=== PATIENT | female | born 1965 | race Caucasian/White ===

== ENCOUNTER 2020-03-02 17:54 | Outpatient (CLI) | payer SELFPAY ==
[2020-03-02 21:37] LABS: Free T4 Free Thyroxine 0.11 ng/dL (0.82-1.77)
== END 2020-03-02 17:55 | disposition home or self-care (01) ==
LOC: LAB 17:56
PROVIDERS: PCP Family Medicine; Visit Provider General Practice
DX: E03.9 Hypothyroidism, unspecified (principal)
CPT/HCPCS: 84439; 84443

== ENCOUNTER → 2020-06-06 14:31 | Outpatient (BNVA) | payer SELFPAY | PROVIDERS: PCP Family Medicine Adult Medicine; Visit Provider Family Medicine Adult Medicine | DX: I10 Essential (primary) hypertension (principal); E05.00 Thyrotoxicosis with diffuse goiter without thyrotoxic crisis or storm; T81.49XA Infection following a procedure, other surgical site, initial encounter; R79.89 Other specified abnormal findings of blood chemistry; Z83.3 Family history of diabetes mellitus | CPT/HCPCS: 80053; 83036; 84443; 85025 ==

== ENCOUNTER 2021-06-30 08:13 | Emergency (ER) | payer MEDICAID, SELFPAY ==
[2021-06-30 08:22] VITALS: BP 148/72; PULSE 57; RESP 16; TEMP 36.9; O2SAT 95; BMI 27.1
--- NOTE | 2021-06-30 09:08 | W.ED.EYEPROB ---
HPI - Eye Problem General: Chief complaint: Eye Problems Stated complaint: L eye pain Time Seen by Provider: 06/30/21 08:15 History of Present Illness: HPI Narrative: Patient comes in complaining of left eye pain that started 3 days ago. States she was seen in urgent care and given an antibiotic ointment without improvement. States she continues to have pain. She denies any trauma that she knows of. Denies any fever or vision loss. Associated symptoms: Denies fever(s), headache(s), nausea, neck pain or vomiting Review of Systems Const: Reports: change in weight; Denies: fever(s) or body aches Eyes: Reports: blurry vision and eye discomfort; Denies: change in vision ENMT: Denies: throat pain or odynophagia Card: Denies: chest pain or palpitations Resp: Reports: dyspnea; Denies: productive cough GI: Reports: hematochezia; Denies: abdominal pain, nausea or vomiting : Denies: flank pain or difficulty voiding Musc: Denies: neck pain or back pain Skin/Breast: Denies: rash or pruritus Neuro: Denies: headache(s) or numbness in extremities Psych: Reports: change in appetite; Denies: anxiety Endo: Denies: polyuria or excessive sweating PFSH ED PFSH: Medical History (Updated 06/30/21 @ 09:06 by Miller Bryan MD) Allergic rhinitis due to allergen Chronic low back pain Decreased glomerular filtration rate (GFR) Graves disease HTN (hypertension) Incisional abscess Plantar wart of right foot Restless leg syndrome Surgical History Hx of cholecystectomy Family History Other Arthritis CHF (congestive heart failure) Cancer Hyperlipidemia Hypertension Social History Smoking and tobacco status: current every day smoker cigarettes Packs smoked per day: 0.5 Second hand smoke exposure: Yes Alcohol intake: current Alcohol intake frequency: holidays/special occasions only Alcohol type: beer Household members: family and children Current occupational status: unemployed Physical Exam Const: COMMON NORMALS: no acute distress and patient oriented x3 EXAM LIMITATIONS: no altered mental status GENERAL APPEARANCE: cooperative, comfortable and well developed ORIENTATION/CONSCIOUSNESS: Yes awake, Yes oriented to person, Yes oriented to place and Yes oriented to time HENMT: COMMON NORMALS: normocephalic and atraumatic HEAD & SCALP: normocephalic and atraumatic Eye: COMMON NORMALS: Equal, round and reactive pupils present, EOMs intact bilaterally and conjunctivae normal (Conjunctival injection in the left eye) CONJUNCTIVA: Yes conjunctivae normal (Conjunctival injection in the left eye) CORNEA: Yes corneas normal (Fluorescein uptake in a circular pattern at the 6 o'clock position left eye) and fluorescein used PUPIL: Yes Equal, round and reactive pupils present SLIT LAMP EXAM: Yes slit lamp exam performed with fluorescein OTHER: No foreign body visualized, fluorescein uptake in a circular pattern at the 6 o'clock position of the left eye concerning for corneal abrasion versus corneal ulcer Neck/C-Spine: COMMON NORMALS: full ROM and supple Resp: COMMON NORMALS: normal respiratory effort, No retractions and clear to auscultation bilaterally AUSCULTATION: clear to auscultation bilaterally Cardio: COMMON NORMALS: regular rate and regular rhythm RATE: regular rate RHYTHM: regular rhythm GI: COMMON NORMALS: Normal to inspection, nondistended, normoactive bowel sounds present, Soft to palpation and non-tender PALPATION: Yes Soft to palpation Back/Pelvis: COMMON NORMALS: thoraco-lumbar ROM normal Extremity: COMMON NORMALS: normal to inspection and full ROM Neuro: COMMON NORMALS: patient oriented x3 SENSORIUM/ORIENTATION: Yes oriented to person, Yes oriented to place and Yes oriented to time Course ED course: Patient comes in complaining of left eye pain for the past 3 days. States she was seen at urgent care diagnosed with a corneal abrasion and started on antibiotic ointment. States the pain continues and she came in for reevaluation. On physical exam she does have fluorescein uptake in her left eye in a circular pattern at the 6 o'clock position. This is concerning for corneal abrasion versus a corneal ulcer. She denies any trauma. Slit-lamp exam does not reveal any foreign body. Will change her to erythromycin ointment, refer to ophthalmology, and discharged with precautions to return for worsening or changing symptoms. Vital Signs: Vital signs: Vital Signs Temperature 98.4 F 06/30/21 08:22 Pulse Rate 57 L 06/30/21 08:22 Respiratory Rate 16 06/30/21 08:22 Blood Pressure 148/72 06/30/21 08:22 Pulse Oximetry 95 06/30/21 08:22 Discharge Plan Discharge Patient Disposition: Home Clinical Impression: Corneal abrasion, left Qualifiers: Encounter type: initial encounter Qualified Code(s): S05.02XA - Injury of conjunctiva and corneal abrasion without foreign body, left eye, initial encounter Condition: Stable Prescriptions: No Action acetaminophen [Tylenol Extra Strength] 500 mg tablet 500 mg PO .10X PRNRF: 0 atorvastatin 80 mg tablet 80 mg PO DAILY RF: 0 bacitracin-polymyxin B 500-10,000 unit/gram ointment 1 applic ophthalmic (eye) QID 7 Days Qty: 3.5 RF: 0 levothyroxine 88 mcg tablet 88 mcg PO DAILY Qty: 30 RF: 5 amitriptyline 25 mg tablet 25 mg PO .HS Qty: 30 RF: 5 metoprolol tartrate 50 mg tablet 50 mg PO BID Qty: 60 RF: 5 Discharge Orders: Discharge ED (Routine); Ordered 06/30/21 Ordered By: Miller Bryan Referrals: Mayito Shankar MD [Primary Care Provider] - Jean Marie Gross MD [Physician] - Coding Level of Care Code ED Annealing Oven Operator for Chg Fwd Exam Comprehensive
[2021-06-30] MEDS: tetracaine 0.5% Op Soln 4 mL Btl 1 DROP EYE-LEFT (09:37)
[2021-06-30] MEDS: erythromycin Op Oint 1 gm 1 APPLIC EYE-LEFT (09:37)
--- NOTE | 2021-07-02 13:42 | DCPLANNER ---
Addendum entered by Yuliet Abad 07/20/21 08:31: hardware manager called the office of Dr. Gross to confirm that an appointment had been scheduled for patient. hardware manager was told that patient had already followed up with a specialist, where she lives in [place]. Original Note: hardware manager had message to schedule a follow up appointment for patient with Dr. Gross, eye doctor. hardware manager faxed patients information to the office of Dr. Gross. Patients information will be printed and reviewed. Clinic will call patient with appointment information.
== END 2021-06-30 09:41 | disposition home or self-care (01) ==
PROVIDERS: Emergency Provider Emergency Medicine; PCP Family Medicine Adult Medicine
DX: S05.02XA Injury of conjunctiva and corneal abrasion without foreign body, left eye, initial encounter (principal); I10 Essential (primary) hypertension; F17.210 Nicotine dependence, cigarettes, uncomplicated; X58.XXXA Exposure to other specified factors, initial encounter
CPT/HCPCS: 99283

== ENCOUNTER 2021-10-05 13:19 | Inpatient (IN) | payer MEDICAID, SELFPAY ==
[2021-10-05] VITALS (15 sets, daily range): BP systolic 94–137; BP diastolic 51–84; PULSE 73–106; RESP 13–22; TEMP 36.2; O2SAT 80–100; BMI 25.8
--- NOTE | 2021-10-05 13:21 | ED_ITS ---
HPI - Neuro Symptoms/Deficit General: Chief Complaint: Shortness of Breath/Dyspnea Stated Complaint: POSSIBLE STROKE Time Seen by Provider: 10/05/21 13:21 Limitations: altered mental status History of Present Illness: Ms. Harris is a 55-year-old lady with history of hypertension, hyperlipidemia, Graves' disease and known biliary pathology who presents to the emergency department due to altered mental status. Last definitive known well was last night at approximately 8 PM. Upon initial arrival the patient is somnolent and only provides limited history. She was noted by family to have questionable slurred speech with concern for stroke. Upon significant clinical improvement additional history provided by patient. She actually does not endorse specific respiratory symptoms though did have mild back pain over the past few days. She has a known history of pancreatic duct stones and previously has been evaluated at in [place]. She was scheduled to have the last of the stones removed or a stent placed on Friday. She denies new or worsening symptoms associated with her pancreatic stones and she had known stones for a number of years when she did not have insurance that were not intervened upon and have not at significant problems associated with this. Last Observed Normal: 20:00 History of same: No Review of Systems General: Reports: ROS unobtainable due to mental status PFS ED PFSH: Medical History Allergic rhinitis due to allergen Chronic low back pain Decreased glomerular filtration rate (GFR) Graves disease HTN (hypertension) Incisional abscess Plantar wart of right foot Restless leg syndrome Surgical History Hx of cholecystectomy Family History Other Arthritis CHF (congestive heart failure) Cancer Hyperlipidemia Hypertension Social History Smoking and tobacco status: current every day smoker cigarettes Packs smoked per day: 0.5 Second hand smoke exposure: Yes Alcohol intake: current Alcohol intake frequency: holidays/special occasions only Alcohol type: beer Household members: family and children Current occupational status: unemployed Physical Exam Const: COMMON NORMALS: patient oriented x3 GENERAL APPEARANCE: lethargic and ill appearing ORIENTATION/CONSCIOUSNESS: Yes oriented to person, Yes oriented to place, Yes oriented to time and Yes lethargic HENMT: COMMON NORMALS: normocephalic and atraumatic HEAD & SCALP: normocephalic and atraumatic THROAT: posterior oropharynx normal Eye: COMMON NORMALS: conjunctivae normal CONJUNCTIVA: Yes conjunctivae normal SCLERA: sclerae normal Neck/C-Spine: COMMON NORMALS: supple GENERAL: Yes trachea midline Resp: EFFORT & INSPECTION: Yes tachypneic and Yes respiratory distress AUSCULTATION: rhonchi and diminished lung sounds Cardio: COMMON NORMALS: regular rhythm RATE: tachycardic RHYTHM: regular rhythm OTHER: Diminished peripheral pulses GI: COMMON NORMALS: Soft to palpation PALPATION: Yes Soft to palpation and No Tenderness to palpation present (GI) PERCUSSION: normal to percussion Extremity: GENERAL: Yes normal exam except as noted and No edema Neuro: COMMON NORMALS: patient oriented x3, CN's II-XII intact bilaterally, moves all extremities, no focal motor deficits and no sensory deficits noted SENSORIUM/ORIENTATION: Yes oriented to person, Yes oriented to place, Yes oriented to time, Yes lethargic and Yes somnolent SPEECH: abnormal speech (minimally dysarthric/slurred) PUPIL EXAM: Normal pupillary reactivity/response: bilateral Course ED course: - Patient was seen and evaluated by me at bedside - Patient placed on cardiac monitors, IV access obtained - Initial evaluation notable for ill appearance, patient is tachycardic and hypotensive and somnolent. - ABG notable for hypoxemia and hypercapnia with acidemia. Patient hypoxemia correlates with SPO2 despite supplemental oxygen. BiPAP ordered. - IV fluids and empiric antibiotics ordered. - Labs and xrays personally interpreted by me. EKG at 134 reportedly and 1538 personally interpreted by me. Sinus rhythm. No STEMI. - Labs notable for leukocytosis, normal hemoglobin with macrocytic cells. Normal platelet count. Metabolic panel without acute electrolyte derangement. Creatinine is elevated above only prior baseline in current system. Lactic acid elevated at 2.6. BNP minimally elevated. TSH elevated with mildly low free T4 though clinical presentation and subsequent improvement is not with myxedema coma. Urinalysis negative for urinary tract infection. Urine drug screen positive for opioids of unclear etiology, patient denies opioids. - Imaging notable for right lower lobe pneumonia without evidence of pulmonary embolism. There are changes compared to 2018 CT regarding the patient's known biliary pathology. - Repeat lactic improved after greater than 30 cc/kg ideal body weight and fluid bolus. - Upon serial reexamination after treatment the patient was markedly improved. Initial NIHSS perhaps 2 for dysarthria however currently 0 appears significantly better. Blood pressure is improved and patient currently on supplemental oxygen with nasal cannula. - Based on patient history, evaluation, and testing as interpreted the most likely cause of the patient's condition is pneumonia with severe sepsis resulting in acute hypoxemic and hypercapnic respiratory failure - The results of ED evaluation were discussed with the patient including plan for admission due to requirement for level of care not available if discharged to prevent significant worsening/deterioration. - Admitting service was contacted and Dr Borrego with the hospitalist service agreed to admit the patient - Patient was admitted without further deterioration or significant events. Note: Click bubbles or prepopulated menjivar in note writing are used for assistance with data collection and billing and are inherently more limited than narrative and other text portions of this note. Please use narrative for additional clinical history and defer to narrative/free test for any case of contradictory information. If information appears in only free text or click bubble it should be considered present or absent as reported. Please contact note typewriter assembly and parts inspector for clarifications of clinical information or contradictory information. MDM is a brief summary, contradictory or erroneous seeming information should be clarified and full note should be reviewed. Vital Signs: Vital signs: Vital Signs Temperature 98.3 F 10/07/21 04:42 Pulse Rate 79 10/07/21 10:39 Respiratory Rate 16 10/07/21 10:39 Blood Pressure 145/99 10/07/21 08:52 Pulse Oximetry 93 10/07/21 10:39 MDM - Neuro Symptoms/Deficit Medical Decision Making 55-year-old lady with complex past medical history presenting with altered mental status. Patient found to have acute hypercapnic and hypoxic respiratory failure likely contributing to mental status. She qualifies for severe sepsis secondary to pneumonia. Patient mental state improved with BiPAP and admitted for definitive management and further treatment. Medical Records I reviewed the patient's medical records. Lab Data I reviewed the patient's lab results. : 10/07/21 04:45 10/07/21 04:45 Radiology Impressions Chest X-Ray 10/05/21 13:22 IMPRESSION: 1. Patchy infiltrate in the mid and lower right lung suggesting pneumonia. Head CT 10/05/21 13:22 IMPRESSION: No acute intracranial hemorrhage. Mild small vessel ischemic disease. Chest/Abdomen/Pelvis CT 10/05/21 14:37 IMPRESSION: 1. Pulmonary arteries appear unremarkable. No evidence of pulmonary embolism. 2. No evidence of thoracic aortic aneurysm or dissection. 3. Mild bronchial wall thickening bilaterally. Diffuse tree-in-bud infiltrates noted throughout the right lung. This may represent infectious bronchiolitis versus mycobacterial infection. This is new when compared to the previous study. 4. Focal airspace disease in the posterior right lower lobe, which may represent focal pneumonia. IMPRESSION: 1. 16 x 8 mm bilobed calcification seen in the head of the pancreas near the common duct. This calcification has increased in size when compared to 01/17/2018. This most likely represents a parenchymal calcification of the pancreas versus a pancreatic duct calculus, rather than a distal common duct calculus. 2. There is a new 5 mm calcification in the pancreatic neck, likely located within the pancreatic duct. This is associated with dilatation of the pancreatic duct, and is new when compared to 01/17/2018. 3. The head and uncinate process of the pancreas are mildly enlarged, representing a change when compared to the previous study. This may represent focal pancreatitis. A pancreatic mass is not definitely excluded. Consider follow-up MRI of the pancreas for further assessment. 4. Diverticulosis of the colon. No evidence of acute diverticulitis. Laboratory Results WBC 14.0 10^3/uL (4.0-10.0) H 10/05/21 13:53 RBC 3.74 10^6/uL (4.1-5.3) L 10/05/21 13:53 Hgb 13.1 g/dL (11.5-15.3) 10/05/21 13:53 Hct 41.1 % (37.0-47.0) 10/05/21 13:53 MCV 109.9 fl (81-99) H 10/05/21 13:53 MCH 35.0 pg (28.0-34.0) H 10/05/21 13:53 MCHC 31.9 g/dL (30.0-36.0) 10/05/21 13:53 RDW 15.4 % (12.1-15.1) H 10/05/21 13:53 Plt Count 283 10^3/cmm (130-400) 10/05/21 13:53 MPV 9.6 fL (7.4-10.4) 10/05/21 13:53 Neut % (Auto) 88.7 % 10/05/21 13:53 Lymph % (Auto) 5.5 % 10/05/21 13:53 Bee % (Auto) 4.8 % 10/05/21 13:53 Eos % (Auto) 0.0 % 10/05/21 13:53 Baso % (Auto) 0.4 % 10/05/21 13:53 Neut # (Auto) 12.39 10^3/uL (1.8-7.7) H 10/05/21 13:53 Lymph # (Auto) 0.8 10^3/uL (0.8-4.8) 10/05/21 13:53 Bee # (Auto) 0.7 10^3/uL (0.2-0.9) 10/05/21 13:53 Eos # (Auto) 0.0 10^3/uL (0.0-0.8) 10/05/21 13:53 Baso # (Auto) 0.1 10^3/uL (0.0-0.1) 10/05/21 13:53 Nucleated RBC % (auto) 0 % 10/05/21 13:53 Nucleated RBCs # 0.0 /100WBC 10/05/21 13:53 PT 12.30 SECONDS (12.1-14.9) 10/05/21 14:25 INR 0.89 (0.8-1.2) 10/05/21 14:25 APTT 28.6 SECONDS (23.9-36.7) 10/05/21 14:25 Specimen Type Arterial 10/05/21 13:38 Sample Site Brachial, right 10/05/21 13:38 ABG pH 7.23 (7.35-7.45) L 10/05/21 13:38 ABG pCO2 50.4 mmHg (35-45) H 10/05/21 13:38 ABG pO2 69.2 mmHg (80.0-100.0) L 10/05/21 13:38 ABG HCO3 21.2 mmol/L (22-26) L 10/05/21 13:38 ABG O2 Saturation 93.4 10/05/21 13:38 ABG Base Excess -6.6 mmol/L (-2.0-2.0) L 10/05/21 13:38 Manuel Test N/a 10/05/21 13:38 A-a O2 Gradient 2.5 mmHg (5-10) L 10/05/21 13:38 Hematocrit 40.6 % (37-47) 10/05/21 13:38 Hgb O2 Saturation 92.3 % (95-100) L 10/05/21 13:38 Carboxyhemoglobin 1.0 %THgb (0.4-20.1) 10/05/21 13:38 Methemoglobin 0.1 % (0.4-1.5) L 10/05/21 13:38 Total Hemoglobin 13.2 g/dL (12-16) 10/05/21 13:38 Sodium 143.0 mmol/L (131-143) 10/05/21 13:38 Potassium 3.4 mmol/L (3.5-5.0) L 10/05/21 13:38 Glucose 108.0 mg/dL (70-115) 10/05/21 13:38 Ionized Calcium 1.2 mmol/L (1.1-1.4) 10/05/21 13:38 O2 Delivery Device Nrb 10/05/21 13:38 O2 Liters/Min 15.0 % 10/05/21 13:38 Portrait Painter ID Amh 10/05/21 13:38 Sodium 143 mmol/L (136-145) 10/05/21 14:50 Potassium 3.5 mmol/L (3.5-5.1) 10/05/21 14:50 Chloride 107 mmol/L (98-107) 10/05/21 14:50 Carbon Dioxide 22 mmol/L (22-29) 10/05/21 14:50 Anion Gap 17.5 (5-19) 10/05/21 14:50 BUN 10 mg/dL (6-20) 10/05/21 14:50 Creatinine 1.4 mg/dL (0.5-0.9) H 10/05/21 14:50 GFR Calculation 39.3 mL/min (90-130) L 10/05/21 14:50 Glucose 117 mg/dL (65-115) H 10/05/21 14:50 POC Glucose 94 mg/dL (70-110) 10/05/21 14:26 Calculated Osmolality 296 mOsm/kg (285-295) H 10/05/21 14:50 Lactic Acid 2.6 mmol/L (0.5-2.2) H 10/05/21 14:50 Lactic Acid (Sepsis) 2.2 mmol/L (0.5-2.2) 10/05/21 16:44 Calcium 8.5 mg/dL (8.5-10.5) 10/05/21 14:50 Total Bilirubin 0.3 mg/dL (0.15-1.2) 10/05/21 14:50 AST 23 U/L (0-32) 10/05/21 14:50 ALT 15 U/L (0-33) 10/05/21 14:50 Alkaline Phosphatase 89 IU/L (35-105) 10/05/21 14:50 Troponin T Baseline 25 ng/L (0-10) H 10/05/21 14:50 Troponin T 120 Minute 25.80 ng/L (0-10) H 10/05/21 16:44 Delta Troponin T 0.80 ABS# (0-10) 10/05/21 16:44 NT-Pro-B Natriuret Pep 624 pg/mL (0-125) H 10/05/21 14:50 Total Protein 6.5 g/dL (6.6-8.7) L 10/05/21 14:50 Albumin 4.1 g/dL (3.5-5.2) 10/05/21 14:50 Globulin 2.4 g/dL (1.3-4.6) 10/05/21 14:50 Lipase 24 U/L (13-60) 10/05/21 14:50 TSH 18.17 uIU/mL (0.27-4.20) H 10/05/21 14:50 Free T4 0.69 ng/dL (0.82-1.77) L 10/05/21 14:50 Urine Color Yellow (Yellow) 10/05/21 16:50 Urine Appearance Clear (CLEAR) 10/05/21 16:50 Urine pH 5 (5-7) 10/05/21 16:50 Ur Specific Williams 1.015 (1.005-1.030) 10/05/21 16:50 Urine Protein Neg (Negative) 10/05/21 16:50 Urine Glucose (UA) Norm (Normal) 10/05/21 16:50 Urine Ketones Negative (Negative) 10/05/21 16:50 Urine Blood Neg (Negative) 10/05/21 16:50 Urine Nitrate Negative (Negative) 10/05/21 16:50 Urine Bilirubin Neg (Negative) 10/05/21 16:50 Urine Urobilinogen Norm mg/dL (Negative) 10/05/21 16:50 Ur Leukocyte Esterase Negative (Negative) 10/05/21 16:50 Urine Opiates Screen Positive ng/mL (Negative) H 10/05/21 16:50 Ur Barbiturates Screen Negative ng/mL (Negative) 10/05/21 16:50 Ur Phencyclidine Scrn Negative ng/mL (Negative) 10/05/21 16:50 Ur Amphetamines Screen Negative ng/mL (Negative) 10/05/21 16:50 U Benzodiazepines Scrn Negative ng/mL (Negative) 10/05/21 16:50 Urine Cocaine Screen Negative ng/mL (Negative) 10/05/21 16:50 U Marijuana (THC) Screen Negative ng/mL (Negative) 10/05/21 16:50 Critical Care Time Critical Care Time: Critical Care Time: Yes Total Critical Care Time: 45 Attestation: Due to a high probability of clinically significant, possibly life threatening deterioration, the patient required my highest level of attention and preparedness to intervene emergently and I personally spent this critical care time directly and personally managing the patient. This critical care time included obtaining a history; examining the patient; pulse oximetry; ordering and review of laboratory and imaging studies; arranging urgent treatment with development of a management plan; evaluation of patient's response to treatment; frequent reassessment; and, discussions with other providers as applicable. It was exclusive of separately billable procedures. Primary system involved is respiratory. Discharge Plan Discharge Patient Disposition: Admitted As Inpatient Admit Provider: Demian Sharma Clinical Impression: Pneumonia, Severe sepsis, Acute respiratory failure with hypoxia and hypercapnia Condition: Stable Discharge Diet: Regular Discharge Activity: Resume usual activity Coding Level of Care Code ED Fabric Separator Operator for Chg Fwd Exam Comprehensive
--- NOTE | 2021-10-05 13:22 | XR_ITS ---
WS: [id number] Exam: XR chest 1V portable [id number] Date/Time of Exam: 10/05/2021 1:47 PM Reason For Exam: stroke like symptoms Comparison 01/17/2018. There is patchy infiltrate in the mid and lower right lung suggesting pneumonia. The left lung is bartolo ar. No pneumothorax or pleural effusion. Normal cardiomediastinal silhouette. Regional bony elements are intact. XR/XR chest 1V portable [id number] IMPRESSION: 1. Patchy infiltrate in the mid and lower right lung suggesting pneumonia.
--- NOTE | 2021-10-05 13:22 | CT_ITS ---
WS: [id number] CT HEAD NONCONTRAST HISTORY: Symptoms of Acute Stroke, slurred speech. TECHNIQUE: Contiguous axial imaging performed through the brain in 2.5 mm imaging. Bone and soft tiss ue windows. Sagittal and coronal reformats reviewed. All CT scans at [facility] use at least one of these dose optimization techniques: automated exposure control; mA and/or kV adjustment per pa tient size (includes targeted exams where dose is matched to clinical indication); or iterative recon struction. DLP: 676.57 mGy.cm COMPARISON: None available. No acute intracranial hemorrhage, midline shift or mass effect. Mild small vessel ischemic disease. No atrophy or prior infarcts or herniation. Ventricles: Normal size with no hydrocephalus. No inferior displacement of cerebellar tonsils. Paranasal sinuses: As visualized are clear. Mastoid air cells: Well pneumatized. Calvarium and scalp: Skull is intact with no soft tissue edema or swelling. CT/CT head wo con* [id number] IMPRESSION: No acute intracranial hemorrhage. Mild small vessel ischemic disease.
--- NOTE | 2021-10-05 13:23 | ECG_ITS ---
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 Measurements Intervals [place] Rate: 90 P: 59 OH: 150 QRS: 62 QRSD: 96 T: 71 QT: 383 QTc: 470 Interpretive Statements SINUS RHYTHM LOW QRS VOLTAGE IN PRECORDIAL LEADS [QRS DEFLECTION < 1.0 mV IN CHEST LEADS] Compared to ECG 01/17/2018 09:12:30 Myocardial infarct finding no longer present Electronically Signed On 10-05-2021 13:55:11 CDT by Raymon Locke M.D. [id number]
[2021-10-05 13:49] LABS: ABG PCO2 50.4 mmHg (35-45); ABG PH Result 7.23 (7.35-7.45); Alveolar-Arterial Oxygen Gradi 2.5 mmHg (5-10); Arterial Blood Gas Hematocrit 40.6 % (37-47); Base Excess ABG -6.6 mmol/L (-2.0-2.0); Blood Gas Operator Identificat AMH; Blood Gas Sample Site Brachial, right; Blood Gas Sample Type Arterial; HCO3 ABG 21.2 mmol/L (22-26); HGB O2 Sat 92.3 % (95-100); Ionized Calcium Level - ABG 1.2 mmol/L (1.1-1.4); Methemoglobin 0.1 % (0.4-1.5); Oxygen Device NRB; Oxygen Saturation ABG 93.4; PO2 ABG 69.2 mmHg (80.0-100.0); Potassium Level - ABG 3.4 mmol/L (3.5-5.0); Total Hemoglobin 13.2 g/dL (12-16)
[2021-10-05] MEDS: sodium chloride 0.9% 1,000 ML 999 ML IV ×2 (13:52→14:54)
[2021-10-05 14:00] LABS: Basophils # 0.1 10^3/uL (0.0-0.1); Basophils % 0.4 %; Hematocrit 41.1 % (37.0-47.0); Hemoglobin 13.1 g/dL (11.5-15.3); Lymphocytes # 0.8 10^3/uL (0.8-4.8); Lymphocytes % 5.5 %; Mean Corpuscular HGB Conc 31.9 g/dL (30.0-36.0); Mean Corpuscular Volume 109.9 fl (81-99); Mean Platelet Volume 9.6 fL (7.4-10.4); Monocytes # 0.7 10^3/uL (0.2-0.9); Monocytes % 4.8 %; Neutrophils # 12.39 10^3/uL (1.8-7.7); Neutrophils % 88.7 %; Nucleated Red Blood Cells % 0 %; Platelet Count 283 10^3/cmm (130-400); Red Blood Count 3.74 10^6/uL (4.1-5.3); Red Cell Distribution Width 15.4 % (12.1-15.1)
--- NOTE | 2021-10-05 14:19 | PC.PHAR ---
pt states she takes care of her own medications-pt states she is no longer using moxifloxacin 0.5% eye drops rx filled 09/25/21 4d/s-pt brought in medication bottles
[2021-10-05 14:29] LABS: Glucose Point of Care 94 mg/dL (70-110)
--- NOTE | 2021-10-05 14:37 | CTR_ITS ---
PROCEDURE INFORMATION: Exam: CTA Chest With Contrast Exam date and time: 10/05/2021 4:01 PM Age: 55 years old Clinical indication: Abdominal pain; Generalized; Chest pressure; Prior surgery; Surgery date: 6+ months; Additional info: Sepsis, AMS, history of choledocolithiasis? TECHNIQUE: Imaging protocol: Computed tomographic angiography of the chest with contrast. 3D rendering (Not supervised by radiologist): MIP and/or 3D reconstructed images were created by the technologist. Contrast material: OMNIPAQUE 350; Contrast volume: 95 ml; Contrast route: INTRAVENOUS (IV); COMPARISON: 1. CTA Chest w Abd/Pel w* 01/17/2018 10:35 AM 2. CR XR chest 1V portable [id number] 10/05/2021 1:54 PM RADIATION DOSE METRICS: Total DLP (mGy-cm): 1440.21 FINDINGS: Pulmonary arteries: See Other arteries finding. Aorta: Mild atherosclerosis of the thoracic aorta. No thoracic aortic aneurysm or dissection. Other arteries: .Pulmonary arteries are normal in caliber. No filling defects are demonstrated. No evidence of pulmonary embolism. Lungs: Mild bronchial wall thickening bilaterally. Diffuse tree-in-bud infiltrates noted throughout the right lung. This may represent infectious bronchiolitis versus mycobacterial infection. Focal airspace disease in the posterior right lower lobe, which may represent focal pneumonia. Mild atelectasis in the left lower lobe. No left lung infiltrates. Pleural spaces: No pleural effusion or pneumothorax noted. Heart: No cardiomegaly demonstrated. No pericardial effusion. Lymph nodes: Unremarkable. No enlarged lymph nodes. Bones/joints: No fracture or other acute osseous abnormality. Soft tissues: The soft tissues appear unremarkable. PROCEDURE INFORMATION: Exam: CT Abdomen And Pelvis With Contrast Exam date and time: 10/05/2021 4:01 PM Age: 55 years old Clinical indication: Abdominal pain; Generalized; Chest pressure; Prior surgery; Surgery date: 6+ months; Additional info: Sepsis, AMS, history of choledocolithiasis? TECHNIQUE: Imaging protocol: Computed tomography of the abdomen and pelvis with contrast. 3D rendering (Not supervised by radiologist): MIP and/or 3D reconstructed images were created by the technologist. Contrast material: OMNIPAQUE 350; Contrast volume: 95 ml; Contrast route: INTRAVENOUS (IV); COMPARISON: 1. CTA Chest w Abd/Pel w* 01/17/2018 10:35 AM 2. CR XR chest 1V portable [id number] 10/05/2021 1:54 PM RADIATION DOSE METRICS: Total DLP (mGy-cm): 1440.21 FINDINGS: Liver: The liver is unremarkable in appearance. Gallbladder and bile ducts: The gallbladder is surgically absent. Pancreas: 16 x 8 mm bilobed calcification seen in the head of the pancreas near the common duct. This calcification has increased in size when compared to 01/17/2018. There is a new 5 mm calcification in the pancreatic neck, likely located within the pancreatic duct. The pancreatic duct within the tail and body of the pancreas is dilated, measuring up to 6 mm. This is likely secondary to pancreatic duct obstruction, possibly from the suspected pancreatic duct calculus in the pancreatic neck. The head and uncinate process of the pancreas are mildly enlarged, representing a change when compared to the previous study. Spleen: The spleen is normal in size and appearance. Adrenal glands: The adrenal glands appear within normal limits. Kidneys and ureters: The kidneys are normal in morphology. No hydronephrosis. No solid mass. Stomach and bowel: Diverticulosis of the colon. No evidence of acute diverticulitis. No acute gastric abnormality demonstrated. The small bowel is unremarkable as demonstrated. Appendix: No evidence of appendicitis. The appendix is not identified. Intraperitoneal space: No free air. No significant fluid collection. Vasculature: The aorta is atherosclerotic. No aortic aneurysm. Lymph nodes: No pathologically enlarged lymph nodes are demonstrated. Urinary bladder: The urinary bladder is unremarkable in appearance. Reproductive: Unremarkable as visualized. Bones/joints: Unremarkable. No acute osseous abnormality. Soft tissues: Unremarkable. CT/CT angio chest w abd pel w con IMPRESSION: 1. Pulmonary arteries appear unremarkable. No evidence of pulmonary embolism. 2. No evidence of thoracic aortic aneurysm or dissection. 3. Mild bronchial wall thickening bilaterally. Diffuse tree-in-bud infiltrates noted throughout the right lung. This may represent infectious bronchiolitis versus mycobacterial infection. This is new when compared to the previous study. 4. Focal airspace disease in the posterior right lower lobe, which may represent focal pneumonia. IMPRESSION: 1. 16 x 8 mm bilobed calcification seen in the head of the pancreas near the common duct. This calcification has increased in size when compared to 01/17/2018. This most likely represents a parenchymal calcification of the pancreas versus a pancreatic duct calculus, rather than a distal common duct calculus. 2. There is a new 5 mm calcification in the pancreatic neck, likely located within the pancreatic duct. This is associated with dilatation of the pancreatic duct, and is new when compared to 01/17/2018. 3. The head and uncinate process of the pancreas are mildly enlarged, representing a change when compared to the previous study. This may represent focal pancreatitis. A pancreatic mass is not definitely excluded. Consider follow-up MRI of the pancreas for further assessment. 4. Diverticulosis of the colon. No evidence of acute diverticulitis.
[2021-10-05] MEDS: cefepime 2,000 MG in sodium chloride 0.9% (plus) 50 ML 100 MG IV (15:05)
[2021-10-05 15:19] LABS: Lactic Sepsis W/Reflex 2.6 mmol/L (0.5-2.2)
[2021-10-05 15:20] LABS: Troponin(5th) Baseline 25 ng/L (0-10)
--- NOTE | 2021-10-05 15:23 | ECG_ITS ---
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 Measurements Intervals [place] Rate: 81 P: 51 UT: 161 QRS: 28 QRSD: 93 T: 41 QT: 388 QTc: 453 Interpretive Statements SINUS RHYTHM LOW QRS VOLTAGE IN PRECORDIAL LEADS [QRS DEFLECTION < 1.0 mV IN CHEST LEADS] Compared to ECG 10/05/2021 13:41:00 No significant changes Electronically Signed On 10-06-2021 11:36:21 CDT by Jacques Iyer M.D. [email or web address]
[2021-10-05 15:27] LABS: Alanine Aminotransferase 15 U/L (0-33); Albumin Level 4.1 g/dL (3.5-5.2); Alkaline Phosphatase 89 IU/L (35-105); Anion Gap 17.5 (5-19); Aspartate Amino Transferase 23 U/L (0-32); Blood Urea Nitrogen 10 mg/dL (6-20); Calcium 8.5 mg/dL (8.5-10.5); Carbon Dioxide 22 mmol/L (22-29); Chloride 107 mmol/L (98-107); Globulin 2.4 g/dL (1.3-4.6); Glomerular Filtration Rate 39.3 mL/min (90-130); Glucose 117 mg/dL (65-115); NT Pro B Type Natriuretic Pept 624 pg/mL (0-125); Osmolality Calculated 296 mOsm/kg (285-295); Potassium 3.5 mmol/L (3.5-5.1); Sodium 143 mmol/L (136-145); Thyroid Stimulating Hormone 18.17 uIU/mL (0.27-4.20); Total Bilirubin 0.3 mg/dL (0.15-1.2); Total Protein 6.5 g/dL (6.6-8.7)
[2021-10-05 15:45] LABS: INR 0.89 (0.8-1.2)
[2021-10-05 15:48] LABS: Partial Thromboplastin Time 28.6 SECONDS (23.9-36.7)
[2021-10-05] MEDS: iohexol 350 mg/mL 100 mL Btl IV (16:00)
[2021-10-05 16:41] LABS: Reflex Lactate Order REFLEX LACTIC ORDERD
[2021-10-05 16:43] LABS: Free T4 Free Thyroxine 0.69 ng/dL (0.82-1.77)
[2021-10-05 16:57] LABS: Add Urine Microscopic? NO; Charge for UA Resulting for Rev
[2021-10-05 17:15] LABS: Lactic Acid level (Lactate) 2.2 mmol/L (0.5-2.2)
[2021-10-05 17:22] LABS: Bilirubin Urine Neg (Negative); Blood Urine Neg (Negative); Glucose Urine UA Norm (Normal); Ketones Urine Negative (Negative); Leukocyte Esterase Urine Negative (Negative); Nitrate Urine Negative (Negative); Protein Urine Neg (Negative); Specific Gravity, Urine 1.015 (1.005-1.030); Urine Appearance Clear (CLEAR); Urine Color Yellow (Yellow); Urobilinogen Urine Norm (Negative); pH Urine 5 (5-7)
[2021-10-05 17:26] LABS: Amphetamines Screen Urine Negative (Negative); Barbiturates Screen Urine Negative (Negative); Benzodiazepines Screen Urine Negative (Negative); Cocaine Screen Urine Negative (Negative); Opiate Screen Urine Positive (Negative); PCP Screen Urine Negative (Negative); THC Screen Urine Negative (Negative)
--- NOTE | 2021-10-05 17:36 | PC.NURSE ---
Stroke symptoms resolved on [facility] reassessment. Further assessments cancelled per verbal order from Dr. Ramsey.
[2021-10-05 18:14] LABS: Lipase 24 U/L (13-60)
--- NOTE | 2021-10-05 20:31 | PC.NURSE ---
1914 received report from Nazario ARRIAGA
[2021-10-05 21:38] LABS: Troponin 5 6HR 26.44 ng/L (0-10)
[2021-10-05 21:41] LABS: Troponin 5 6HR Delta 1.44 ng/L (0-12)
--- NOTE | 2021-10-05 22:02 | P.HP_ITS ---
Providers/Chief Complaint Admitting Physician: Demian Sharma MD Primary Care Provider: Mayito Shankar MD Chief Complaint: POSSIBLE STROKE History of Present Illness Arcelia Harris is a 55 year old female w/ h/o HTN, graves dis, RLS, panic dis pancreatic duct stone, came to the ED after being noted by daughter that she was sleeping longer than she normally dose. At 12.30 pm her daughter had a hard time waking her up and even then was very droggy. She was concernerned about a stroke and had EMS transfer her to the ED. In the ED pt was somnolant, hypotensive w/ sys BP 80s and hypoxic. Pt was placed on N/C O2 and soon pt was back to her baseline state answering everything appropriately. A CTA r/o PE but showed b/l bronchiolitis and rt LL Pneumonia and pancreartic duct calculi. Her urine was positive for Opioid even though her home meds did not show any narcotic product. Pt was admitted w/ Acute Pneumonia, Ac Respiratory Failure Review of Systems Narrative: Somolant HEENT: denied visual change, LANIER, sore throat CVS: denied chest pain, palpitation, PND, Resp: denied SOB, cough, CP Abd: denied N/V, constip, diarrhea, Pos for abdominal pain Skeletal denied jt pain, deformity Psy: has panic attack, anxiety. 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, Sz, LANIER, Medications/Allergies Home Medications Medication Instructions Recorded Confirmed Last Taken Type acetaminophen 500 mg tablet 1,500 mg PO Q6H PRN tab 03/16/20 10/05/21 Unknown History (Tylenol Extra Strength) atorvastatin 80 mg tablet 80 mg PO BEDTIME 06/28/21 10/05/21 10/04/21 History albuterol sulfate 90 mcg/actuation 2 puff INHALATION QID PRN 10/05/21 10/05/21 Unknown History aerosol inhaler amitriptyline 25 mg tablet 25 mg PO BEDTIME 10/05/21 10/05/21 10/04/21 History aspirin 325 mg tablet 325 mg PO DAILY 10/05/21 10/05/21 10/04/21 History diphenhydramine HCl 25 mg capsule 50 mg PO BEDTIME 10/05/21 10/05/21 10/04/21 History (Sleep Aid (diphenhydramine)) ibuprofen 200 mg tablet 800 mg PO Q6H PRN 10/05/21 10/05/21 Unknown History levothyroxine 88 mcg tablet 88 mcg PO QAM 10/05/21 10/05/21 10/04/21 History metoprolol tartrate 50 mg tablet 25 mg PO DAILY 10/05/21 10/05/21 10/04/21 History Allergies Allergy/AdvReac Type Severity Reaction Status Date / Time lisinopril Allergy Intermediate ALGY-Hives Verified 10/05/21 14:12 Penicillins Allergy Unknown Unknown Verified 10/05/21 14:12 azithromycin AdvReac Mild ADR-Abdominal Verified 10/05/21 14:12 Pain PFSH Acute PFSH: Medical History Allergic rhinitis due to allergen Chronic low back pain Decreased glomerular filtration rate (GFR) Graves disease HTN (hypertension) Incisional abscess Plantar wart of right foot Restless leg syndrome Surgical History Hx of cholecystectomy Family History Other Arthritis CHF (congestive heart failure) Cancer Hyperlipidemia Hypertension Social History Smoking and tobacco status: current every day smoker cigarettes Packs smoked per day: 0.5 Second hand smoke exposure: Yes Alcohol intake: current Alcohol intake frequency: holidays/special occasions only Alcohol type: beer Household members: family and children Current occupational status: unemployed Vitals/I&O/Wt Last Vital Signs Temp 97.1 F L 10/05/21 13:22 Pulse 83 10/05/21 20:00 Resp 18 10/05/21 20:00 BP 97/52 10/05/21 20:00 Pulse Ox 97 10/05/21 20:00 10/05/21 10/05/21 10/05/21 06:59 14:59 22:59 Intake Total 1000 / 1000 Balance 1000 / 1000 Weight last 48 hrs Weight 72.575 kg Physical Exam Narrative: NAD HEENT: EOMI, PERLLA< Thr (-), Nos (-) Neck: Supple, Thy (-), Bruit (-) CVS: S1S2, RRR, Mur (-) Resp: BS+, Clear Abd: Soft RUQ mild tender, BS+, HSM (-) Edema (-) DIE MAKER ELECTRONIC: A&Ox3 Non focal Data : 10/05/21 13:53 10/05/21 14:50 Micro: Microbiology 10/05/21 14:50 Blood Culture - Preliminary Blood SPECIMEN COLLECTED 10/05/21 14:25 Blood Culture - Preliminary Blood SPECIMEN COLLECTED A&P Assessment and plan (1) Pneumonia: RLL EDUAR w/ hypoxia Status: Acute (2) Acute respiratory failure with hypoxia and hypercapnia: Due to PNA Status: Acute (3) Chronic low back pain: stable Status: Acute (4) HTN (hypertension): Low BP on arrival to ED. Need fluid challange Status: Acute (5) Restless leg syndrome: stable Status: Acute (6) SIRS (systemic inflammatory response syndrome): unarmed security guard tachycardia, tachypnea, leukocytosis. Due to PNA Status: Acute (7) Chronic renal insufficiency, stage II (mild): possibly due to NSAIDS Status: Acute (8) Somnolence: Most likely due to narcotic abuse. May be due to PNA, RAUL, SIRS Status: Acute (9) Pancreatic duct calculus: mild abdominal discomfort. 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
[2021-10-05] MEDS: doxycycline 100 MG in sodium chloride 0.9% (plus) 100 ML IV (22:12)
[2021-10-05] MEDS: enoxaparin 30 mg/0.3 mL Syringe SUBCUT (22:13)
[2021-10-05] MEDS: sodium chloride 0.9% 1,000 ML 75 ML IV (22:14)
[2021-10-05 22:42] LABS: Acetaminophen < 5.0 ug/mL (10-30)
[2021-10-06] VITALS (14 sets, daily range): BP systolic 97–150; BP diastolic 52–81; PULSE 75–101; RESP 16–22; TEMP 37.4; O2SAT 90–98
[2021-10-06 04:22] LABS: Basophils # 0.1 10^3/uL (0.0-0.1); Basophils % 0.3 %; Eosinophils # 0.2 10^3/uL (0.0-0.8); Eosinophils % 0.8 %; Hematocrit 34.3 % (37.0-47.0); Hemoglobin 10.9 g/dL (11.5-15.3); Lymphocytes # 2.5 10^3/uL (0.8-4.8); Lymphocytes % 12.2 %; Mean Corpuscular HGB Conc 31.8 g/dL (30.0-36.0); Mean Corpuscular Hemoglobin 34.8 pg (28.0-34.0); Mean Corpuscular Volume 109.6 fl (81-99); Mean Platelet Volume 9.9 fL (7.4-10.4); Monocytes # 0.8 10^3/uL (0.2-0.9); Neutrophils # 16.66 10^3/uL (1.8-7.7); Neutrophils % 81.9 %; Nucleated Red Blood Cells % 0 %; Platelet Count 220 10^3/cmm (130-400); Red Blood Count 3.13 10^6/uL (4.1-5.3); Red Cell Distribution Width 15.5 % (12.1-15.1); White Blood Count 20.4 10^3/uL (4.0-10.0)
[2021-10-06 04:51] LABS: Anion Gap 11.8 (5-19); Blood Urea Nitrogen 9 mg/dL (6-20); Calcium 7.8 mg/dL (8.5-10.5); Carbon Dioxide 21 mmol/L (22-29); Chloride 105 mmol/L (98-107); Glucose 91 mg/dL (65-115); Osmolality Calculated 276 mOsm/kg (285-295); Potassium 3.8 mmol/L (3.5-5.1); Sodium 134 mmol/L (136-145)
[2021-10-06] MEDS: levothyroxine 100 mcg Tablet PO (05:50)
[2021-10-06] MEDS: pantoprazole DR 40 mg Tablet PO (09:09)
[2021-10-06] MEDS: doxycycline 100 MG in sodium chloride 0.9% (plus) 100 ML IV ×2 (09:30→21:48)
--- NOTE | 2021-10-06 12:23 | PM.PN ---
Subjective Subjective: Patient was seen and examined this morning she was complaining of nausea and also had vomiting. Medications: Medication Review Details: Generic Name Dose Route Start Last Admin Trade Name Dean PRN Reason Stop Dose Admin Enoxaparin Sodium 30 mg 10/05/21 21:51 10/05/21 22:13 Enoxaparin 30 Mg /0.3 Ml Syringe SUBCUT 30 mg Q24H MARIELOS Administration Doxycycline Hyclat e 100 mg/ 100 mls @ 100 mls /hr 10/05/21 21:30 10/06/21 10:30 Sodium Chloride IV Infused Q12H MARIELOS Infusion Protocol Sodium Chloride 1,000 mls @ 75 ml s/hr 10/05/21 21:45 10/05/21 22:14 Sodium Chloride 0.9% IV 75 mls/hr .[id number] MARIELOS Administration Levothyroxine Sodi um 100 mcg 10/06/21 06:00 10/06/21 05:50 Levothyroxine 10 0 Mcg Tablet PO 100 mcg QAM MARIELOS Administration Pantoprazole Sodiu m 40 mg 10/06/21 09:00 10/06/21 09:[address] 40 Mg Tablet PO 40 mg DAILY MARIELOS Administration Vitals/I&O/Wt Last Vital Signs Temp 97.1 F L 10/05/21 13:22 Pulse 79 10/06/21 07:43 Resp 16 10/06/21 07:43 BP 137/74 10/06/21 05:00 Pulse Ox 98 10/06/21 07:43 10/05/21 10/06/21 10/06/21 22:59 06:59 14:59 Intake Total 1000 / 1000 150 / 1150 Balance 1000 / 1000 150 / 1150 Weight last 48 hrs Weight 72.575 kg Physical Exam Const: COMMON NORMALS: patient oriented x3 HENMT: COMMON NORMALS: normocephalic and atraumatic HEAD & SCALP: normocephalic and atraumatic Chest: CHEST: Yes Symmetrical chest wall rise Resp: COMMON NORMALS: normal respiratory effort, No retractions, No use of accessory muscles and clear to auscultation bilaterally EFFORT & INSPECTION: Yes symmetric chest movement AUSCULTATION: clear to auscultation bilaterally Cardio: COMMON NORMALS: regular rate, regular rhythm, S1 normal heart sound present, S2 normal heart sound present, No gallops present (Cardio), No murmurs present (Cardio), No rub (Cardio) and Peripheral pulses 2+ throughout RATE: regular rate RHYTHM: regular rhythm HEART SOUNDS: S1 normal heart sound present and S2 normal heart sound present PERIPHERAL PULSES: Peripheral pulses 2+ throughout GI: COMMON NORMALS: Normal to inspection, nondistended, normoactive bowel sounds present, Soft to palpation, non-tender, No hepatosplenomegaly present and no masses AUSCULTATION: Yes normoactive bowel sounds PALPATION: Yes Soft to palpation and Yes No hepatosplenomegaly present RECTAL EXAM: deferred Extremity: COMMON NORMALS: no clubbing, cyanosis or edema and no pedal edema Neuro: COMMON NORMALS: patient oriented x3 Data : 10/06/21 04:00 10/06/21 04:00 Micro: Microbiology 10/05/21 14:50 Blood Culture - Preliminary Blood SPECIMEN COLLECTED 10/05/21 14:25 Blood Culture - Preliminary Blood SPECIMEN COLLECTED A&P Assessment and plan (1) Pneumonia: RLL PNA w/ hypoxia Status: Acute (2) Acute respiratory failure with hypoxia and hypercapnia: Due to PNA Status: Acute (3) Chronic low back pain: stable Status: Acute (4) HTN (hypertension): Low BP on arrival to ED. Need fluid challange Status: Acute (5) Restless leg syndrome: stable Status: Acute (6) SIRS (systemic inflammatory response syndrome): peanut separator tachycardia, tachypnea, leukocytosis. Due to PNA Status: Acute (7) Chronic renal insufficiency, stage II (mild): possibly due to NSAIDS Status: Acute (8) Somnolence: Most likely due to narcotic abuse. May be due to PNA, RAUL, SIRS Status: Acute (9) Pancreatic duct calculus: mild abdominal discomfort. 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
--- NOTE | 2021-10-06 13:10 | PC.NURSE ---
pt got up to go to the bathroom at 0800.returned from restroom and became nauseous and vomited approx 200 cc dark green with undigested food vomit.doctor notified
[2021-10-06] MEDS: sodium chloride 0.9% 1,000 ML 75 ML IV (16:51)
[2021-10-06] MEDS: enoxaparin 30 mg/0.3 mL Syringe SUBCUT (21:48)
[2021-10-06] MEDS: acetaminophen 325 mg Tablet 650 MG PO (21:50)
[2021-10-07 04:42] VITALS: BP 125/63; PULSE 70; RESP 18; TEMP 36.8; O2SAT 96
[2021-10-07 05:25] LABS: Basophils # 0.1 10^3/uL (0.0-0.1); Basophils % 0.3 %; Eosinophils % 0.1 %; Hematocrit 33.3 % (37.0-47.0); Hemoglobin 10.9 g/dL (11.5-15.3); Lymphocytes # 2.9 10^3/uL (0.8-4.8); Lymphocytes % 16.5 %; Mean Corpuscular HGB Conc 32.7 g/dL (30.0-36.0); Mean Corpuscular Hemoglobin 35.4 pg (28.0-34.0); Mean Corpuscular Volume 108.1 fl (81-99); Mean Platelet Volume 10.2 fL (7.4-10.4); Monocytes # 0.5 10^3/uL (0.2-0.9); Monocytes % 3.1 %; Neutrophils # 13.97 10^3/uL (1.8-7.7); Neutrophils % 79.2 %; Nucleated Red Blood Cells % 0 %; Platelet Count 226 10^3/cmm (130-400); Red Blood Count 3.08 10^6/uL (4.1-5.3); Red Cell Distribution Width 15.5 % (12.1-15.1); White Blood Count 17.7 10^3/uL (4.0-10.0)
[2021-10-07 05:44] LABS: Alanine Aminotransferase 12 U/L (0-33); Albumin Level 3.3 g/dL (3.5-5.2); Alkaline Phosphatase 91 IU/L (35-105); Anion Gap 13.5 (5-19); Aspartate Amino Transferase 17 U/L (0-32); Blood Urea Nitrogen 6 mg/dL (6-20); Calcium 8.3 mg/dL (8.5-10.5); Carbon Dioxide 22 mmol/L (22-29); Chloride 108 mmol/L (98-107); Globulin 2.4 g/dL (1.3-4.6); Glomerular Filtration Rate 104.6 mL/min (90-130); Glucose 77 mg/dL (65-115); Osmolality Calculated 286 mOsm/kg (285-295); Potassium 3.5 mmol/L (3.5-5.1); Sodium 140 mmol/L (136-145); Total Bilirubin 0.4 mg/dL (0.15-1.2); Total Protein 5.7 g/dL (6.6-8.7)
[2021-10-07 06:00] VITALS: PULSE 69
[2021-10-07] MEDS: levothyroxine 100 mcg Tablet PO (06:22)
[2021-10-07 08:02] VITALS: PULSE 79; RESP 16; O2SAT 93
[2021-10-07] MEDS: doxycycline 100 MG in sodium chloride 0.9% (plus) 100 ML IV (08:46)
[2021-10-07] MEDS: pantoprazole DR 40 mg Tablet PO (08:47)
[2021-10-07 08:52] VITALS: BP 102/82; BP 132/85; BP 145/99; PULSE 85; PULSE 94
--- NOTE | 2021-10-07 09:31 | P.DS_ITS ---
Discharge Providers Date of Admission: 10/05/21 18:11 Date of Discharge: October 07, 2021 Attending Provider at Admission: Demian Sharma MD Attending Provider at Discharge: Mitchel Soler MD Primary Care Provider: Mayito Shankar MD Diagnoses at Discharge Discharge Diagnosis (1) Pneumonia: (2) Acute respiratory failure with hypoxia and hypercapnia: (3) Chronic low back pain: (4) HTN (hypertension): (5) Restless leg syndrome: (6) SIRS (systemic inflammatory response syndrome): (7) Chronic renal insufficiency, stage II (mild): (8) Somnolence: (9) Pancreatic duct calculus: Reason for Visit Reason for Visit: POSSIBLE STROKE Hospital Course Hospital Course HPI:Demian Sharma MD Arcelia Harris is a 55 year old female w/ h/o HTN, graves dis, RLS, panic dis pancreatic duct stone, came to the ED after being noted by daughter that she was sleeping longer than she normally dose. At 12.30 pm her daughter had a hard time waking her up and even then was very droggy. She was concernerned about a stroke and? had EMS transfer her to the ED. In the ED pt was somnolant, hypotensive w/ sys BP 80s and hypoxic. Pt was placed on N/C O2 and soon pt was back to her baseline state answering everything appropriately. A CTA r/o PE but showed b/l bronchiolitis and rt LL Pneumonia and pancreartic duct calculi. Her urine was positive for Opioid even though her home meds did not show any narcotic product. Pt was admitted w/ Acute Pneumonia, Ac Respiratory Failure: Hospital course: She was admitted for the management of pneumonia: He was kept on doxycycline, and other conservative respiratory support measures, blood cultures were negative, she responded quickly to the above medical management, at the time of discharge she was saturating well on room air, at the time of discharge she was also alert awake oriented*3, somnolence on admission possibly could be secondary to sleep apnea pneumonia, less likely opioid abuse, positive opioid urine is likely false positive. For her Pancreatic duct calculus Schedule for stone extration as an outpatient, she was tolerating p.o. intake well, had no significant abdominal discomfort. Patient responded well to above medical management and was discharged in stable condition to home. Continue to follow with primary care physician as an outpatient. Physical Exam Const: COMMON NORMALS: patient oriented x3 HENMT: COMMON NORMALS: normocephalic and atraumatic HEAD & SCALP: normocephalic and atraumatic Chest: CHEST: Yes Symmetrical chest wall rise Resp: COMMON NORMALS: normal respiratory effort, No retractions, No use of accessory muscles and clear to auscultation bilaterally EFFORT & INSPECTION: Yes symmetric chest movement AUSCULTATION: clear to auscultation bilaterally Cardio: COMMON NORMALS: regular rate, regular rhythm, S1 normal heart sound present, S2 normal heart sound present, No gallops present (Cardio), No murmurs present (Cardio), No rub (Cardio) and Peripheral pulses 2+ throughout RATE: regular rate RHYTHM: regular rhythm HEART SOUNDS: S1 normal heart sound present and S2 normal heart sound present PERIPHERAL PULSES: Peripheral pulses 2+ throughout GI: COMMON NORMALS: Normal to inspection, nondistended, normoactive bowel sounds present, Soft to palpation, non-tender, No hepatosplenomegaly present and no masses AUSCULTATION: Yes normoactive bowel sounds PALPATION: Yes Soft to palpation and Yes No hepatosplenomegaly present RECTAL EXAM: deferred Extremity: COMMON NORMALS: no clubbing, cyanosis or edema and no pedal edema Neuro: COMMON NORMALS: patient oriented x3 Discharge Data Studies Completed and Pending Completed Studies During Hospitalization Category Date Time Status CT head wo con* [id number] Stat Cat Scan 10/05/21 13:[address] abdomen pelvis [CT angio chest w abd pel w Cat Scan 10/05/21 14:37 Completed con] Urgent XR chest 1V portable [id number] Stat Exams 10/05/21 13:22 Completed Pending at discharge Category Date Time Status Blood Culture Stat Lab 10/05/21 14:50 Results CBC Auto Diff [Complete Blood Count w/Auto] AM LABS Lab 10/08/21 04:00 Ordered CBC Auto Diff [Complete Blood Count w/Auto] AM LABS Lab 10/09/21 04:00 Ordered CMP [Comprehensive Metabolic Panel] AM LABS Lab 10/08/21 04:00 Ordered CMP [Comprehensive Metabolic Panel] AM LABS Lab 10/09/21 04:00 Ordered Radiology Impressions Chest X-Ray 10/05/21 13:22 IMPRESSION: 1. Patchy infiltrate in the mid and lower right lung suggesting pneumonia. Head CT 10/05/21 13:22 IMPRESSION: No acute intracranial hemorrhage. Mild small vessel ischemic disease. Chest/Abdomen/Pelvis CT 10/05/21 14:37 IMPRESSION: 1. Pulmonary arteries appear unremarkable. No evidence of pulmonary embolism. 2. No evidence of thoracic aortic aneurysm or dissection. 3. Mild bronchial wall thickening bilaterally. Diffuse tree-in-bud infiltrates noted throughout the right lung. This may represent infectious bronchiolitis versus mycobacterial infection. This is new when compared to the previous study. 4. Focal airspace disease in the posterior right lower lobe, which may represent focal pneumonia. IMPRESSION: 1. 16 x 8 mm bilobed calcification seen in the head of the pancreas near the common duct. This calcification has increased in size when compared to 01/17/2018. This most likely represents a parenchymal calcification of the pancreas versus a pancreatic duct calculus, rather than a distal common duct calculus. 2. There is a new 5 mm calcification in the pancreatic neck, likely located within the pancreatic duct. This is associated with dilatation of the pancreatic duct, and is new when compared to 01/17/2018. 3. The head and uncinate process of the pancreas are mildly enlarged, representing a change when compared to the previous study. This may represent focal pancreatitis. A pancreatic mass is not definitely excluded. Consider follow-up MRI of the pancreas for further assessment. 4. Diverticulosis of the colon. No evidence of acute diverticulitis. Laboratory Results WBC 17.7 10^3/uL (4.0-10.0) H 10/07/21 04:45 RBC 3.08 10^6/uL (4.1-5.3) L 10/07/21 04:45 Hgb 10.9 g/dL (11.5-15.3) L 10/07/21 04:45 Hct 33.3 % (37.0-47.0) L 10/07/21 04:45 MCV 108.1 fl (81-99) H 10/07/21 04:45 MCH 35.4 pg (28.0-34.0) H 10/07/21 04:45 MCHC 32.7 g/dL (30.0-36.0) 10/07/21 04:45 RDW 15.5 % (12.1-15.1) H 10/07/21 04:45 Plt Count 226 10^3/cmm (130-400) 10/07/21 04:45 MPV 10.2 fL (7.4-10.4) 10/07/21 04:45 Neut % (Auto) 79.2 % 10/07/21 04:45 Lymph % (Auto) 16.5 % 10/07/21 04:45 [place] % (Auto) 3.1 % 10/07/21 04:45 Eos % (Auto) 0.1 % 10/07/21 04:45 Baso % (Auto) 0.3 % 10/07/21 04:45 Neut # (Auto) 13.97 10^3/uL (1.8-7.7) H 10/07/21 04:45 Lymph # (Auto) 2.9 10^3/uL (0.8-4.8) 10/07/21 04:45 [place] # (Auto) 0.5 10^3/uL (0.2-0.9) 10/07/21 04:45 Eos # (Auto) 0.0 10^3/uL (0.0-0.8) 10/07/21 04:45 Baso # (Auto) 0.1 10^3/uL (0.0-0.1) 10/07/21 04:45 Nucleated RBC % (auto) 0 % 10/07/21 04:45 Nucleated RBCs # 0.0 /100WBC 10/07/21 04:45 PT 12.30 SECONDS (12.1-14.9) 10/05/21 14:25 INR 0.89 (0.8-1.2) 10/05/21 14:25 APTT 28.6 SECONDS (23.9-36.7) 10/05/21 14:25 Specimen Type Arterial 10/05/21 13:38 Sample Site Brachial, right 10/05/21 13:38 ABG pH 7.23 (7.35-7.45) L 10/05/21 13:38 ABG pCO2 50.4 mmHg (35-45) H 10/05/21 13:38 ABG pO2 69.2 mmHg (80.0-100.0) L 10/05/21 13:38 ABG HCO3 21.2 mmol/L (22-26) L 10/05/21 13:38 ABG O2 Saturation 93.4 10/05/21 13:38 ABG Base Excess -6.6 mmol/L (-2.0-2.0) L 10/05/21 13:38 Manuel Test N/a 10/05/21 13:38 A-a O2 Gradient 2.5 mmHg (5-10) L 10/05/21 13:38 Hematocrit 40.6 % (37-47) 10/05/21 13:38 Hgb O2 Saturation 92.3 % (95-100) L 10/05/21 13:38 Carboxyhemoglobin 1.0 %THgb (0.4-20.1) 10/05/21 13:38 Methemoglobin 0.1 % (0.4-1.5) L 10/05/21 13:38 Total Hemoglobin 13.2 g/dL (12-16) 10/05/21 13:38 Sodium 143.0 mmol/L (131-143) 10/05/21 13:38 Potassium 3.4 mmol/L (3.5-5.0) L 10/05/21 13:38 Glucose 108.0 mg/dL (70-115) 10/05/21 13:38 Ionized Calcium 1.2 mmol/L (1.1-1.4) 10/05/21 13:38 O2 Delivery Device Nrb 10/05/21 13:38 O2 Liters/Min 15.0 % 10/05/21 13:38 Psych Coordinator ID Amh 10/05/21 13:38 Sodium 140 mmol/L (136-145) 10/07/21 04:45 Potassium 3.5 mmol/L (3.5-5.1) 10/07/21 04:45 Chloride 108 mmol/L (98-107) H 10/07/21 04:45 Carbon Dioxide 22 mmol/L (22-29) 10/07/21 04:45 Anion Gap 13.5 (5-19) 10/07/21 04:45 BUN 6 mg/dL (6-20) 10/07/21 04:45 Creatinine 0.6 mg/dL (0.5-0.9) 10/07/21 04:45 GFR Calculation 104.6 mL/min (90-130) 10/07/21 04:45 Glucose 77 mg/dL (65-115) 10/07/21 04:45 POC Glucose 94 mg/dL (70-110) 10/05/21 14:26 Calculated Osmolality 286 mOsm/kg (285-295) 10/07/21 04:45 Lactic Acid 2.6 mmol/L (0.5-2.2) H 10/05/21 14:50 Lactic Acid (Sepsis) 2.2 mmol/L (0.5-2.2) 10/05/21 16:44 Calcium 8.3 mg/dL (8.5-10.5) L 10/07/21 04:45 Total Bilirubin 0.4 mg/dL (0.15-1.2) 10/07/21 04:45 AST 17 U/L (0-32) 10/07/21 04:45 ALT 12 U/L (0-33) 10/07/21 04:45 Alkaline Phosphatase 91 IU/L (35-105) 10/07/21 04:45 Troponin T Baseline 25 ng/L (0-10) H 10/05/21 14:50 Troponin T 120 Minute 25.80 ng/L (0-10) H 10/05/21 16:44 Delta Troponin T 0.80 ABS# (0-10) 10/05/21 16:44 Troponin T Hi Sens 6Hr 26.44 ng/L (0-10) H 10/05/21 21:05 Troponin T Hi Sens 6Hr Delta 1.44 ng/L (0-12) 10/05/21 21:05 NT-Pro-B Natriuret Pep 624 pg/mL (0-125) H 10/05/21 14:50 Total Protein 5.7 g/dL (6.6-8.7) L 10/07/21 04:45 Albumin 3.3 g/dL (3.5-5.2) L 10/07/21 04:45 Globulin 2.4 g/dL (1.3-4.6) 10/07/21 04:45 Lipase 24 U/L (13-60) 10/05/21 14:50 TSH 18.17 uIU/mL (0.27-4.20) H 10/05/21 14:50 Free T4 0.69 ng/dL (0.82-1.77) L 10/05/21 14:50 Urine Color Yellow (Yellow) 10/05/21 16:50 Urine Appearance Clear (CLEAR) 10/05/21 16:50 Urine pH 5 (5-7) 10/05/21 16:50 Ur Specific [place] 1.015 (1.005-1.030) 10/05/21 16:50 Urine Protein Neg (Negative) 10/05/21 16:50 Urine Glucose (UA) Norm (Normal) 10/05/21 16:50 Urine Ketones Negative (Negative) 10/05/21 16:50 Urine Blood Neg (Negative) 10/05/21 16:50 Urine Nitrate Negative (Negative) 10/05/21 16:50 Urine Bilirubin Neg (Negative) 10/05/21 16:50 Urine Urobilinogen Norm mg/dL (Negative) 10/05/21 16:50 Ur Leukocyte Esterase Negative (Negative) 10/05/21 16:50 Urine Opiates Screen Positive ng/mL (Negative) H 10/05/21 16:50 Acetaminophen < 5.0 ug/mL (10-30) L 10/05/21 21:05 Ur Barbiturates Screen Negative ng/mL (Negative) 10/05/21 16:50 Ur Phencyclidine Scrn Negative ng/mL (Negative) 10/05/21 16:50 Ur Amphetamines Screen Negative ng/mL (Negative) 10/05/21 16:50 U Benzodiazepines Scrn Negative ng/mL (Negative) 10/05/21 16:50 Urine Cocaine Screen Negative ng/mL (Negative) 10/05/21 16:50 U Marijuana (THC) Screen Negative ng/mL (Negative) 10/05/21 16:50 Vitals Last Vital Signs Temp 98.3 F 10/07/21 04:42 Pulse 85 10/07/21 08:52 Resp 16 10/07/21 08:02 BP 145/99 10/07/21 08:52 Pulse Ox 93 10/07/21 08:02 Discharge Plan Discharge Patient Disposition: Home Condition: Stable Prescriptions: New levothyroxine 100 mcg capsule 100 mcg PO DAILY 30 Days Qty: 30 3RF doxycycline monohydrate 100 mg tablet 100 mg PO BID 7 Days Qty: 14 0RF Continued acetaminophen [Tylenol Extra Strength] 500 mg tablet 1,500 mg PO Q6H PRN (Reason: Pain) 0RF atorvastatin 80 mg tablet 80 mg PO BEDTIME 0RF aspirin 325 mg Tablet 325 mg PO DAILY 0RF Sleep Aid (diphenhydramine) 25 mg Capsule 50 mg PO BEDTIME 0RF metoprolol tartrate 50 mg tablet 25 mg PO DAILY 0RF ibuprofen 200 mg Tablet 800 mg PO Q6H PRN (Reason: Pain) 0RF albuterol sulfate 90 mcg/actuation Hfa Aerosol Inhaler 2 puff INHALATION QID PRN (Reason: Shortness Of Breath) 0RF amitriptyline 25 mg tablet 25 mg PO BEDTIME 0RF Discontinued levothyroxine 88 mcg tablet 88 mcg PO QAM 0RF Discharge Orders: Discharge Order (Routine); Ordered 10/07/21 Ordered By: Mitchel Soler Referrals: Mayito Shankar MD [Primary Care Provider] - 2 weeks ([facility] will contact you to schedule an follow-up appointment in 2 weeks. If you haven't heard fro them by Friday. Please call ) Discharge Diet: Regular Discharge Activity: Resume usual activity Patient Instructions: Doxycycline (By mouth) (Acticlate, Adoxa, Avidoxy, Monodox, Doryx), Levothyroxine (By mouth) (Levothroid, Levoxyl, Synthroid, Tirosint), Community Acquired Pneumonia (DC), Acute Respiratory Failure (GEN), Opioid Safety, Pneumonia Stoplight Discharge Attestations Time Spent in Discharge Care*: less than 30 min Quality Metrics Clinical Quality Measures [ No reported AMI, CVA or VTE this stay] Coding Level of Care Code Acute Chg FW DC note Diagnoses Pneumonia J18.9 Acute respiratory failure with hypoxia and hypercapnia J96.01; J96.02 Chronic low back pain M54.5; G89.29 HTN (hypertension) I10 Restless leg syndrome G25.81 SIRS (systemic inflammatory response syndrome) R65.10 Chronic renal insufficiency, stage II (mild) N18.2 Somnolence R40.0 Pancreatic duct calculus K86.89
[2021-10-07 10:39] VITALS: PULSE 79; RESP 16; O2SAT 93
--- NOTE | 2021-10-07 11:54 | PC.NURSE ---
discharge instructions given and explained,including changing positions slowly to avoid dizziness.pt verb understanding of instructions.discharged via w/c to exit.daughter to drive pt home.
== END 2021-10-07 11:57 | disposition home or self-care (01) | DRG 193 ==
LOC: ER 18:06 → CSU 20:18
PROVIDERS: Admitting Provider Internal Medicine; Emergency Provider Emergency Medicine; PCP Family Medicine Adult Medicine; Visit Provider Internal Medicine
DX: J18.9 Pneumonia, unspecified organism (principal); J96.02 Acute respiratory failure with hypercapnia; J96.01 Acute respiratory failure with hypoxia; R65.11 Systemic inflammatory response syndrome (SIRS) of non-infectious origin with acute organ dysfunction; J21.9 Acute bronchiolitis, unspecified; K86.89 Other specified diseases of pancreas; I12.9 Hypertensive chronic kidney disease with stage 1 through stage 4 chronic kidney disease, or unspecified chronic kidney disease; N18.2 Chronic kidney disease, stage 2 (mild); G89.29 Other chronic pain; M54.50 Low back pain, unspecified; E05.00 Thyrotoxicosis with diffuse goiter without thyrotoxic crisis or storm; F17.210 Nicotine dependence, cigarettes, uncomplicated; R40.0 Somnolence; R11.2 Nausea with vomiting, unspecified; G25.81 Restless legs syndrome; Z79.82 Long term (current) use of aspirin
CPT/HCPCS: 36415; 36416; 36600; 70450; 71045; 71275; 74177; 80048; 80051; 80053; 80306; 80307; 81003; 82330; 82805; 82962; 83605; 83690; 83880; 84439; 84443; 84484; 85025; 85610; 85730; 87040; 93005; 94660; 96365; 96366; 96372; 99285; J0692; J1650; J3370; J3490; J7030; J7040; Q9967

== ENCOUNTER 2022-02-17 18:51 | Emergency (ER) | payer MEDICAID, SELFPAY ==
[2022-02-17 19:04] VITALS: BP 170/82; PULSE 117; RESP 18; TEMP 36.4; O2SAT 91; BMI 27.7
--- NOTE | 2022-02-17 19:21 | XRR_ITS ---
PROCEDURE INFORMATION: Exam: XR Chest Exam date and time: 02/17/2022 7:51 PM Age: 56 years old Clinical indication: Chest pressure; Patient HX: C/O chest pain starting today this afternoon. ; Additional info: Cp TECHNIQUE: Imaging protocol: Radiologic exam of the chest. Views: 1 view. COMPARISON: CR XR chest 1V portable [id number] 10/05/2021 1:54 PM FINDINGS: Lungs: There is new streaky density in the left lower lobe concerning for atelectasis or small pneumonic infiltrate. Right lung is clear. The pulmonary vascularity is within normal limits. Pleural spaces: Unremarkable. No pleural effusion. No pneumothorax. Heart/Mediastinum: There is unchanged borderline cardiomegaly. Bones/joints: No acute abnormality. XR/XR chest 1V portable [id number] IMPRESSION: There is new streaky density in the left lower lobe concerning for atelectasis or small pneumonic infiltrate.
--- NOTE | 2022-02-17 19:22 | ECG_ITS ---
[facility] Test Date: 2022-02-17 Pat Name: Arcelia Harris Department: Room: Gender: Female [employer]: : 1965 Requested By: Wilson Washington Order Number: [id number] Devendra MD: Lester Caruso M.D. Measurements Intervals [place] Rate: 109 P: 48 VA: 129 QRS: 0 QRSD: 90 T: 52 QT: 308 QTc: 416 Interpretive Statements SINUS TACHYCARDIA POSSIBLE ANTERIOR MYOCARDIAL INFARCTION , PROBABLY OLD [30 ms Q WAVE IN V3/V4, OR R < 0.2 mV IN V4] Compared to ECG 10/05/2021 15:38:20 Myocardial infarct finding now present Sinus rhythm no longer present Electronically Signed On 02-18-2022 17:37:01 CDT by Lester Caruso M.D. [id number]
--- NOTE | 2022-02-17 20:29 | CTR_ITS ---
PROCEDURE INFORMATION: Exam: CT Abdomen And Pelvis Without Contrast Exam date and time: 02/17/2022 9:13 PM Age: 56 years old Clinical indication: Abdominal pain; Epigastric; Prior surgery; Surgery type: Gb; Additional info: Abd pain TECHNIQUE: Imaging protocol: Computed tomography of the abdomen and pelvis without contrast. Radiation optimization: All CT scans at this facility use at least one of these dose optimization techniques: automated exposure control; mA and/or kV adjustment per patient size (includes targeted exams where dose is matched to clinical indication); or iterative reconstruction. COMPARISON: CT angio chest w abd pel w con 10/05/2021 4:01 PM RADIATION DOSE METRICS: Total DLP (mGy-cm): 763.98 FINDINGS: Mediastinal space: There is fluid distending the distal esophagus compatible with probable reflux. Liver: Unremarkable.No mass. Gallbladder and bile ducts: There has been a cholecystectomy. There is no common bile duct dilation. Pancreas: Previously noted calcifications within the pancreas, dilatation of the pancreatic duct and enlargement of the head of the pancreas are unchanged compared to the prior exam. Pancreatic calcifications may reflect sequela of chronic pancreatitis versus duct calcification especially the 9 mm calculus image 32 that appears is obstructing the main pancreatic duct. Trace haziness of the fat adjacent to the head of the pancreas is unchanged and may reflect scarring or mild low-grade acute pancreatitis. Spleen: Normal. No splenomegaly. Adrenal glands: The adrenal glands are normal. Kidneys and ureters: There are multiple bilateral renal collecting system calcifications. There is no evidence of hydronephrosis. Stomach and bowel: The stomach is very distended with fluid. No wall thickening. Extensive diverticulosis is present in the distal colon. There is no evidence of colitis/diverticulitis. There is no evidence of intestinal perforation or obstruction. There is mildly excessive colonic stool content. Appendix: No evidence of appendicitis. Intraperitoneal space: Unremarkable. No free air. No significant fluid collection. Vasculature: The aorta is normal. Lymph nodes: Unremarkable.No enlarged lymph nodes. Urinary bladder: Unremarkable as visualized. Reproductive: Unremarkable as visualized. Bones/joints: Unremarkable. No acute fracture. Soft tissues: Unremarkable. CT/CT abdomen pelvis wo con [id number] IMPRESSION: 1. There is fluid distending the distal esophagus compatible with probable reflux. Stomach is also very distended with fluid. No evidence of bowel obstruction or gastric wall thickening/distal obstruction. This could reflect reactive changes to adjacent mild pancreatitis. 2. Previously noted calcifications within the pancreas, dilatation of the pancreatic duct and enlargement of the head of the pancreas are unchanged compared to the prior exam. Mass in the head of the pancreas cannot be excluded but this could reflect enlargement due to acute pancreatitis. MRI/MRCP may be helpful for further evaluation. 3. Trace haziness of the fat adjacent to the head of the pancreas is unchanged and may reflect scarring or mild low-grade acute pancreatitis.
--- NOTE | 2022-02-17 20:30 | ED_ITS ---
HPI - Chest Pain General: Chief Complaint: Chest Pain Stated Complaint: chest pain, confusion Time Seen by Provider: 02/17/22 20:25 Source: patient Mode of arrival: ambulatory Limitations: no limitations History of Present Illness: 56-year-old female states she has had a history of stone in her pancreas and is caused her issues in the past due to pancreatitis and sepsis she states that over the last day she been having abdominal pains epigastric in nature along with nausea vomiting similar symptoms in the past. States the pain radiates to her back she denies any fever. She states that she is also had some chest pain with this pain it feels like her pain radiates into her chest denies any cough or shortness of breath. Associated symptoms: Reports abdominal pain, nausea and vomiting; Deny dyspnea or fever(s) Review of Systems Const: Denies: fever(s), chills, body aches or change in appetite Eyes: Denies: blurry vision or eye discomfort ENMT: Denies: throat pain or dental pain Card: Denies: chest pain Resp: Denies: dyspnea GI: Reports: abdominal pain, nausea and vomiting : Denies: dysuria Musc: Denies: neck pain or back pain Skin/Breast: Denies: rash Neuro: Denies: headache(s) Psych: Denies: depression Reji/Lymph: Denies: easy bruising All/Imm: Denies: urticaria PFSH ED PFSH: Medical History Acute respiratory failure with hypoxia and hypercapnia Allergic rhinitis due to allergen Chronic low back pain Chronic renal insufficiency, stage II (mild) Decreased glomerular filtration rate (GFR) Graves disease HTN (hypertension) Incisional abscess Pancreatic duct calculus Plantar wart of right foot Pneumonia Restless leg syndrome Severe sepsis SIRS (systemic inflammatory response syndrome) Somnolence Surgical History Hx of cholecystectomy Family History Other Arthritis CHF (congestive heart failure) Cancer Hyperlipidemia Hypertension Social History Smoking and tobacco status: current every day smoker cigarettes Packs smoked per day: 0.5 Second hand smoke exposure: Yes Alcohol intake: current Alcohol intake frequency: holidays/special occasions only Alcohol type: beer Household members: family and children Current occupational status: unemployed Physical Exam Const: COMMON NORMALS: no acute distress, patient oriented x3 and healthy appearing HENMT: COMMON NORMALS: normocephalic and atraumatic HEAD & SCALP: normocephalic and atraumatic Eye: COMMON NORMALS: Equal, round and reactive pupils present and EOMs intact bilaterally PUPIL: Yes Equal, round and reactive pupils present Neck/C-Spine: COMMON NORMALS: full ROM and supple Chest: COMMONS NORMALS: normal inspection of the chest and normal palpation of entire chest wall Resp: COMMON NORMALS: normal respiratory effort, No retractions, No use of accessory muscles and clear to auscultation bilaterally AUSCULTATION: clear to auscultation bilaterally Cardio: COMMON NORMALS: regular rate, regular rhythm and No murmurs present (Cardio) RATE: regular rate RHYTHM: regular rhythm GI: COMMON NORMALS: Normal to inspection, nondistended, normoactive bowel sounds present, Soft to palpation and no masses PALPATION: Yes Soft to palpation and Yes Tenderness to palpation present (GI) (epigastric tenderness) Extremity: COMMON NORMALS: normal to inspection and full ROM Neuro: COMMON NORMALS: patient oriented x3, moves all extremities and no focal motor deficits Psych: COMMON NORMALS: mental status grossly normal, Normal thought process present and cooperative THOUGHT PROCESS: Normal thought process present Skin: COMMON NORMALS: no rashes or lesions noted and no wounds GENERAL SKIN EXAM: no rashes or lesions noted Course Vital Signs: Vital signs: Vital Signs Temperature 97.5 F L 02/17/22 19:04 Pulse Rate 81 02/18/22 00:18 Respiratory Rate 16 02/18/22 00:18 Blood Pressure 131/74 02/18/22 00:18 Pulse Oximetry 91 02/18/22 00:18 MDM - Chest Pain Medical Decision Making Patient presents here with upper abdominal pain along with chest pain she states that she is felt little short of breath no cough x-ray shows a possible pneumonia CT showed chronic findings no signs of pancreatitis we will start patient on doxycycline she is to follow-up PCP and return if worsening. Lab Data : 02/17/22 20:51 02/17/22 20:51 Radiology Impressions Chest X-Ray 02/17/22 19:21 IMPRESSION: There is new streaky density in the left lower lobe concerning for atelectasis or small pneumonic infiltrate. Abdomen/Pelvis CT 02/17/22 20:29 IMPRESSION: 1. There is fluid distending the distal esophagus compatible with probable reflux. Stomach is also very distended with fluid. No evidence of bowel obstruction or gastric wall thickening/distal obstruction. This could reflect reactive changes to adjacent mild pancreatitis. 2. Previously noted calcifications within the pancreas, dilatation of the pancreatic duct and enlargement of the head of the pancreas are unchanged compared to the prior exam. Mass in the head of the pancreas cannot be excluded but this could reflect enlargement due to acute pancreatitis. MRI/MRCP may be helpful for further evaluation. 3. Trace haziness of the fat adjacent to the head of the pancreas is unchanged and may reflect scarring or mild low-grade acute pancreatitis. Laboratory Results WBC 14.7 10^3/uL (4.0-10.0) H 02/17/22 20:51 RBC 3.91 10^6/uL (4.1-5.3) L 02/17/22 20:51 Hgb 13.3 g/dL (11.5-15.3) 02/17/22 20:51 Hct 43.5 % (37.0-47.0) 02/17/22 20:51 MCV 111.3 fl (81-99) H 02/17/22 20:51 MCH 34.0 pg (28.0-34.0) 02/17/22 20:51 MCHC 30.6 g/dL (30.0-36.0) 02/17/22 20:51 RDW 15.0 % (12.1-15.1) 02/17/22 20:51 Plt Count 307 10^3/cmm (130-400) 02/17/22 20:51 MPV 9.5 fL (7.4-10.4) 02/17/22 20:51 Neut % (Auto) 87.5 % 02/17/22 20:51 Lymph % (Auto) 6.7 % 02/17/22 20:51 [place] % (Auto) 5.0 % 02/17/22 20:51 Eos % (Auto) 0.1 % 02/17/22 20:51 Baso % (Auto) 0.4 % 02/17/22 20:51 Neut # (Auto) 12.84 10^3/uL (1.8-7.7) H 02/17/22 20:51 Lymph # (Auto) 1.0 10^3/uL (0.8-4.8) 02/17/22 20:51 [place] # (Auto) 0.7 10^3/uL (0.2-0.9) 02/17/22 20:51 Eos # (Auto) 0.0 10^3/uL (0.0-0.8) 02/17/22 20:51 Baso # (Auto) 0.1 10^3/uL (0.0-0.1) 02/17/22 20:51 Nucleated RBC % (auto) 0 % 02/17/22 20:51 Nucleated RBCs # 0.0 /100WBC 02/17/22 20:51 Sodium 136 mmol/L (136-145) 02/17/22 20:51 Potassium 3.7 mmol/L (3.5-5.1) 02/17/22 20:51 Chloride 98 mmol/L (98-107) 02/17/22 20:51 Carbon Dioxide 22 mmol/L (22-29) 02/17/22 20:51 Anion Gap 19.7 (5-19) H 02/17/22 20:51 BUN 7 mg/dL (6-20) 02/17/22 20:51 Creatinine 0.9 mg/dL (0.5-0.9) 02/17/22 20:51 GFR Calculation 65.2 mL/min (90-130) L 02/17/22 20:51 Glucose 105 mg/dL (65-115) 02/17/22 20:51 Calculated Osmolality 280 mOsm/kg (285-295) L 02/17/22 20:51 Calcium 9.9 mg/dL (8.5-10.5) 02/17/22 20:51 Total Bilirubin 0.8 mg/dL (0.15-1.2) 02/17/22 20:51 AST 29 U/L (0-32) 02/17/22 20:51 ALT 24 U/L (0-33) 02/17/22 20:51 Alkaline Phosphatase 127 IU/L (35-105) H 02/17/22 20:51 Troponin T Baseline 20 ng/L (0-10) H 02/17/22 20:51 Troponin T 120 Minute 14.26 ng/L (0-10) H 02/17/22 23:24 Delta Troponin T -5.74 ABS# (0-10) L 02/17/22 23:24 Total Protein 7.9 g/dL (6.6-8.7) 02/17/22 20:51 Albumin 4.5 g/dL (3.5-5.2) 02/17/22 20:51 Globulin 3.4 g/dL (1.3-4.6) 02/17/22 20:51 Lipase 121 U/L (13-60) H 02/17/22 20:51 SARS-CoV-2 Ag (Rapid) Negative (Negative) 02/17/22 23:24 EKG Data EKG 1: I personally reviewed and interpreted this EKG as follows: EKG interpretation date: 02/17/22 EKG interpretation time: 19:01 Interpretation: sinus tach hr [address] or t wave abnormalities qrs 90 qtc 372 EKG 2: I personally reviewed and interpreted this EKG as follows: EKG interpretation date: 02/17/22 EKG interpretation time: 20:33 Interpretation: nsr hr [address] or t wave abnormalities qrs 87 qtc 398 Discharge Plan Discharge Patient Disposition: Home Clinical Impression: Pneumonia Condition: Stable Prescriptions: New doxycycline hyclate 100 mg tablet 100 mg PO BID 7 Days Qty: 14 0RF No Action acetaminophen [Tylenol Extra Strength] 500 mg tablet 1,500 mg PO Q6H PRN (Reason: Pain) atorvastatin 80 mg tablet 80 mg PO BEDTIME aspirin 325 mg Tablet 325 mg PO DAILY Sleep Aid (diphenhydramine) 25 mg Capsule 50 mg PO BEDTIME metoprolol tartrate 50 mg tablet 25 mg PO DAILY ibuprofen 200 mg Tablet 800 mg PO Q6H PRN (Reason: Pain) albuterol sulfate 90 mcg/actuation Hfa Aerosol Inhaler 2 puff INHALATION QID PRN (Reason: Shortness Of Breath) amitriptyline 25 mg tablet 25 mg PO BEDTIME levothyroxine 100 mcg capsule 100 mcg PO DAILY 30 Days Qty: 30 3RF Discharge Orders: Discharge ED (Routine); Ordered 02/18/22 Ordered By: Wilson Washington Referrals: Mayito Shankar MD [Primary Care Provider] - 1-3 days Discharge Diet: Advance as tolerated Discharge Activity: Resume usual activity Patient Instructions: Pneumonia (ED) Coding Level of Care Code ED Beauty Specialist for Judyg Fwd Exam Comprehensive
--- NOTE | 2022-02-17 20:33 | ECG_ITS ---
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 Measurements Intervals [place] Rate: 85 P: 67 AL: 148 QRS: 31 QRSD: 87 T: 85 QT: 355 QTc: 424 Interpretive Statements SINUS RHYTHM LOW QRS VOLTAGE IN PRECORDIAL LEADS [QRS DEFLECTION < 1.0 mV IN CHEST LEADS] Compared to ECG 10/05/2021 15:38:20 No significant changes Electronically Signed On 02-18-2022 17:47:01 CDT by Lester Caruso M.D. [id number]
[2022-02-17 20:56] VITALS: RESP 18
[2022-02-17] MEDS: morphine 4 mg/mL SDV 1 mL IVP (20:56)
[2022-02-17 20:57] LABS: Basophils # 0.1 10^3/uL (0.0-0.1); Basophils % 0.4 %; Eosinophils % 0.1 %; Hematocrit 43.5 % (37.0-47.0); Hemoglobin 13.3 g/dL (11.5-15.3); Lymphocytes % 6.7 %; Mean Corpuscular HGB Conc 30.6 g/dL (30.0-36.0); Mean Corpuscular Volume 111.3 fl (81-99); Mean Platelet Volume 9.5 fL (7.4-10.4); Monocytes # 0.7 10^3/uL (0.2-0.9); Neutrophils # 12.84 10^3/uL (1.8-7.7); Neutrophils % 87.5 %; Nucleated Red Blood Cells % 0 %; Platelet Count 307 10^3/cmm (130-400); Red Blood Count 3.91 10^6/uL (4.1-5.3); White Blood Count 14.7 10^3/uL (4.0-10.0)
[2022-02-17] MEDS: sodium chloride 0.9% 1,000 ML 999 ML IV (20:57)
[2022-02-17] MEDS: ondansetron 2 mg/ML SDV 2 mL 4 MG IVP (20:57)
[2022-02-17 21:38] LABS: Alanine Aminotransferase 24 U/L (0-33); Albumin Level 4.5 g/dL (3.5-5.2); Alkaline Phosphatase 127 IU/L (35-105); Anion Gap 19.7 (5-19); Aspartate Amino Transferase 29 U/L (0-32); Blood Urea Nitrogen 7 mg/dL (6-20); Calcium 9.9 mg/dL (8.5-10.5); Carbon Dioxide 22 mmol/L (22-29); Chloride 98 mmol/L (98-107); Globulin 3.4 g/dL (1.3-4.6); Glomerular Filtration Rate 65.2 mL/min (90-130); Glucose 105 mg/dL (65-115); Lipase 121 U/L (13-60); Osmolality Calculated 280 mOsm/kg (285-295); Potassium 3.7 mmol/L (3.5-5.1); Sodium 136 mmol/L (136-145); Total Bilirubin 0.8 mg/dL (0.15-1.2); Total Protein 7.9 g/dL (6.6-8.7)
[2022-02-17 21:39] LABS: Troponin(5th) Baseline 20 ng/L (0-10)
[2022-02-17] MEDS: doxycycline 100 mg Tablet PO (23:23)
[2022-02-17 23:53] LABS: Troponin 5 2HR 14.26 ng/L (0-10)
[2022-02-17 23:55] LABS: SARS Covid-2 Antigen Negative (Negative)
[2022-02-17 23:56] LABS: Troponin 5 2HR Delta -5.74 ABS# (0-10)
[2022-02-18 00:18] VITALS: BP 131/74; PULSE 81; RESP 16; O2SAT 91
== END 2022-02-18 00:19 | disposition home or self-care (01) ==
PROVIDERS: Emergency Provider Emergency Medicine; PCP Family Medicine Adult Medicine
DX: J18.9 Pneumonia, unspecified organism (principal); Z79.82 Long term (current) use of aspirin; I12.9 Hypertensive chronic kidney disease with stage 1 through stage 4 chronic kidney disease, or unspecified chronic kidney disease; N18.2 Chronic kidney disease, stage 2 (mild); F17.210 Nicotine dependence, cigarettes, uncomplicated; Z20.822 Contact with and (suspected) exposure to COVID-19
CPT/HCPCS: 71045; 74176; 80053; 83690; 84484; 85025; 87426; 93005; 96361; 96374; 96375; 99285; J2270; J2405; J7030

== ENCOUNTER 2022-12-26 16:44 | Inpatient (IN) | payer MEDICAID, SELFPAY ==
[2022-12-26] VITALS (7 sets, daily range): BP systolic 106–127; BP diastolic 56–96; PULSE 76–98; RESP 16–22; TEMP 36.6; O2SAT 89–93; BMI 29.0
--- NOTE | 2022-12-26 16:52 | XRR_ITS ---
PROCEDURE INFORMATION: Exam: XR Chest Exam date and time: 12/26/2022 5:18 PM Age: 57 years old Clinical indication: Other: AMS TECHNIQUE: Imaging protocol: Radiologic exam of the chest. Views: 1 view. COMPARISON: CR XR chest 1V portable [id number] 02/17/2022 7:51 PM FINDINGS: Lungs: Lungs are clear bilaterally. Pleural spaces: No pleural effusion. No pneumothorax. Heart/Mediastinum: The cardiac silhouette and mediastinal contours are unremarkable. Bones/joints: Unremarkable for age. XR/XR chest 1V portable [id number] IMPRESSION: No acute cardiopulmonary process.
--- NOTE | 2022-12-26 16:52 | CTR_ITS ---
PROCEDURE INFORMATION: Exam: CT Head Without Contrast Exam date and time: 12/26/2022 5:47 PM Age: 57 years old Clinical indication: Altered mental status/memory loss; Confusion or disorientation; Additional info: AMS TECHNIQUE: Imaging protocol: Computed tomography of the head without contrast. Sagittal and coronal reformatted images were created and reviewed. Radiation optimization: All CT scans at this facility use at least one of these dose optimization techniques: automated exposure control; mA and/or kV adjustment per patient size (includes targeted exams where dose is matched to clinical indication); or iterative reconstruction. REPORTING DATA: Count of CT and Cardiac NM exams in prior 12 months: This patient has received [address] and 0 known cardiac nuclear medicine studies in the 12 months prior to the current study. COMPARISON: CT head wo con* [id number] 10/05/2021 2:03 PM RADIATION DOSE METRICS: Total DLP (mGy-cm): 1050.38 FINDINGS: Brain: No acute intracranial hemorrhage. No acute infarct. No intra-axial or extra-axial masses. Jang-white matter differentiation is preserved. No cerebral edema. No extra-axial fluid collections. No midline shift. No evidence for Chiari 1 malformation. Focal area of decreased attenuation consistent with an old lacunar infarct in the right basal ganglia. Left basal ganglia calcifications. Cerebral ventricles: No hydrocephalus. Paranasal sinuses: Mild mucoperiosteal thickening in the visualized right maxillary sinus. Other visualized paranasal sinuses are clear. Mastoid air cells: Mastoid air cells are clear bilaterally. Orbital cavities: No acute abnormality in the visualized orbits. Dental: The patient is edentulous. Bones/joints: No acute fracture. Soft tissues: The extracranial soft tissues are unremarkable. Vasculature: Mild atherosclerotic changes in the visualized arteries. CT/CT head wo con* [id number] IMPRESSION: 1. No acute abnormality of the brain. 2. Old lacunar infarct in the right basal ganglia. 3. Mild mucoperiosteal thickening in the visualized right maxillary sinus. 4. Incidental/nonacute findings are listed in the report.
--- NOTE | 2022-12-26 17:01 | ECG_ITS ---
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 Measurements Intervals [place] Rate: 84 P: 56 [place]: 155 QRS: 42 QRSD: 86 T: 59 QT: 373 QTc: 442 Interpretive Statements SINUS RHYTHM LOW QRS VOLTAGE IN PRECORDIAL LEADS [QRS DEFLECTION < 1.0 mV IN CHEST LEADS] NONSPECIFIC T-WAVE ABNORMALITY Compared to ECG 02/17/2022 20:33:53 T-wave abnormality now present Electronically Signed On 12-27-2022 8:45:22 CDT by Lester Caruso M.D. [id number]
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
[2022-12-26 17:21] LABS: Base Excess ABG -12.2 mmol/L (-2.0-2.0); Blood Gas CCRB By CAK; Blood Gas Operator Identificat CAK; HCO3 ABG 16.2 mmol/L (22-26); Oxygen Device NC; PO2 ABG 51.5 mmHg (80.0-100.0)
[2022-12-26 17:22] LABS: Arterial Blood Gas Hematocrit 45.3 % (37-47); Blood Gas CCRB Time 1722
[2022-12-26 17:24] LABS: Blood Gas Allen Test Pos; Blood Gas Sample Site Radial, right; Blood Gas Sample Type Arterial
[2022-12-26] MEDS: sodium chloride 0.9% 1,000 ML 999 ML IV ×2 (17:40→18:56)
[2022-12-26 17:43] LABS: Add Urine Microscopic? YES; Bilirubin Urine 1+ (Negative); Blood Urine Neg (Negative); Glucose Urine UA Norm (Normal); Ketones Urine 1+ (Negative); Leukocyte Esterase Urine Negative (Negative); Nitrate Urine Negative (Negative); Protein Urine 1+ (Negative); RBC Urine 0-4 /hpf (0-2); Specific Gravity, Urine 1.025 (1.005-1.030); Squamous Epithelial Cell Urine 0-4 /hpf (0-5); Urine Color Yellow (Yellow); Urobilinogen Urine Norm (Negative); WBC Urine 0-4 /hpf (0-5); pH Urine 5 (5-7)
[2022-12-26 17:44] LABS: Add Urine Culture? No; Amorphous Sediment Urine 3+ /hpf; Bacteria Urine TRACE /hpf; Mucus Urine 1+ /hpf
[2022-12-26 17:44] LABS: ABG PH Result 7.16 (7.35-7.45)
[2022-12-26 17:49] LABS: Hemoglobin 14.4 g/dL (11.5-15.3); Mean Corpuscular HGB Conc 31.3 g/dL (30.0-36.0); Mean Corpuscular Volume 105.3 fl (81-99); Mean Platelet Volume 9.8 fL (7.4-10.4); Platelet Count 304 10^3/cmm (130-400); Red Blood Count 4.37 10^6/uL (4.1-5.3); Red Cell Distribution Width 15.9 % (12.1-15.1); White Blood Count 12.7 10^3/uL (4.0-10.0)
[2022-12-26 18:05] LABS: INR 0.94 (0.8-1.2)
[2022-12-26 18:08] LABS: Troponin(5th) Baseline 13 ng/L (0-10)
[2022-12-26 18:17] LABS: Alanine Aminotransferase 12 U/L (0-33); Albumin Level 4.4 g/dL (3.5-5.2); Alkaline Phosphatase 88 U/L (35-105); Anion Gap 24.4 (5-19); Aspartate Amino Transferase 25 U/L (0-32); Blood Urea Nitrogen 14 mg/dL (6-20); Carbon Dioxide 17 mmol/L (22-29); Chloride 102 mmol/L (98-107); Globulin 2.5 g/dL (1.3-4.6); Glomerular Filtration Rate 31.2 mL/min (90-130); Glucose 110 mg/dL (65-115); Magnesium 1.7 mg/dL (1.7-2.3); NT Pro B Type Natriuretic Pept 3718 pg/mL (0-125); Osmolality Calculated 289 mOsm/kg (285-295); Potassium 4.4 mmol/L (3.5-5.1); Sodium 139 mmol/L (136-145); Thyroid Stimulating Hormone 12.32 uIU/mL (0.27-4.20); Total Bilirubin 0.3 mg/dL (0.15-1.2); Total Protein 6.9 g/dL (6.6-8.7)
[2022-12-26 18:18] LABS: Alcohol Level < 10 mg/dL (0-10); Lactic Sepsis W/Reflex 7.3 mmol/L (0.5-2.2)
[2022-12-26] MEDS: cefepime 2,000 MG in sodium chloride 0.9% (plus) 50 ML 100 MG IV (18:27)
[2022-12-26 18:35] LABS: Ammonia 44 umol/L (11-51)
[2022-12-26 18:38] LABS: Absolute Segmented Neutrophil 8.4 10/cmm (1.6-7.1); Segmented Neutrophils 66 %; Total Cells Counted 100 (0-100)
[2022-12-26 18:39] LABS: Band Neutrophils Absolute 1.7 10^3/cmm (0.0-1.2); Eosinophils 0 %; Lymphocytes 14 %; Lymphocytes Absolute 1.8 10^3/cmm (1.2-3.4); Macrocytosis 1+; Monocytes Absolute 0.5 10^3/cmm (0.1-0.6); Platelet Estimate Normal (Normal)
--- NOTE | 2022-12-26 18:56 | ECG_ITS ---
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 Measurements Intervals [place] Rate: 79 P: 17 IN: 163 QRS: 44 QRSD: 90 T: 69 QT: 360 QTc: 414 Interpretive Statements SINUS RHYTHM LOW QRS VOLTAGE IN PRECORDIAL LEADS [QRS DEFLECTION < 1.0 mV IN CHEST LEADS] Compared to ECG 12/26/2022 17:01:00 T-wave abnormality no longer present Electronically Signed On 12-27-2022 8:46:25 CDT by Lester Caruso M.D. [id number]
--- NOTE | 2022-12-26 19:20 | P.HP_ITS ---
Providers/Chief Complaint Primary Care Provider: Mayito Shankar MD Chief Complaint: ams History of Present Illness Arcelia Harris is a 57 year old female Who presented to the hospital with chief complaint of confusion. Patient stating that she has been experiencing headache for the last 2 to 3 days she has not noticed any fever, nausea, vomiting, chest pain or shortness of breath, no recent signs of UTI, no recent abdominal pain, she has been experiencing diarrhea for last 2 weeks as well, she thinks she is dehydrated today when she helped her grandson to go to school she went back to take a nap and she did not wake up until 4:00 when the family arrived it was hard to arouse her and that is why EMS was called in the ER she has been diagnosed with severe dehydration with high lactic acid CSF panel requested she does not have any typical signs of meningitis high lactic acid could be related to dehydration versus breakthrough seizure however she is not endorsing tongue biting, urinary or fecal incontinence or history of seizure, TEAGAN noted as well clinically patient is dehydrated She is awake and alert GCS 15 NIH 0 Patient is stating that she moved from [place] and she has not been using his levothyroxine very well and she uses 2 L of oxygen only at bedtime Abnormal TSH noted Review of Systems Const: Denies: fever(s) Eyes: Denies: change in vision ENMT: Reports: throat pain Card: Denies: chest pain Resp: Denies: dyspnea GI: Denies: abdominal pain : Denies: flank pain Musc: Denies: neck pain Skin/Breast: Denies: rash Neuro: Reports: headache(s) Medications/Allergies Home Medications Medication Instructions Recorded Confirmed Last Taken Type acetaminophen 500 mg tablet 1,500 mg PO Q6H PRN Pain 03/16/20 10/05/22 Unknown History (Tylenol Extra Strength) atorvastatin 80 mg tablet 80 mg PO BEDTIME 06/28/21 10/05/22 10/04/21 History albuterol sulfate 90 mcg/actuation 2 puff inhalation QID PRN 10/05/21 10/05/22 Unknown History aerosol inhaler Shortness Of Breath amitriptyline 25 mg tablet 25 mg PO BEDTIME 10/05/21 10/05/22 10/04/21 History aspirin 325 mg tablet 325 mg PO DAILY 10/05/21 10/05/22 10/04/21 History diphenhydramine HCl 25 mg capsule 50 mg PO BEDTIME 10/05/21 10/05/22 10/04/21 History (Sleep Aid (diphenhydramine)) ibuprofen 200 mg tablet 800 mg PO Q6H PRN Pain 10/05/21 10/05/22 Unknown History metoprolol tartrate 50 mg tablet 25 mg PO DAILY 10/05/21 10/05/22 10/04/21 History levothyroxine 100 mcg capsule 100 mcg PO DAILY 30 days #30 caps 10/07/21 10/05/22 Unknown Rx ondansetron 8 mg disintegrating 8 mg PO Q8H PRN nausea and 06/01/22 10/05/22 Unknown Rx tablet vomiting 5 days #15 tabs sulfamethoxazole 800 1 tab PO BID 7 days #14 tabs 10/05/22 10/05/22 Unknown Rx mg-trimethoprim 160 mg tablet (Bactrim DS) Allergies Allergy/AdvReac Type Severity Reaction Status Date / Time lisinopril Allergy Intermediate ALGY-Hives Verified 10/05/22 13:30 Penicillins Allergy Unknown Unknown Verified 10/05/22 13:30 azithromycin AdvReac Mild ADR-Abdominal Verified 10/05/22 13:30 Pain PFSH Acute PFSH: Medical History Acute respiratory failure with hypoxia and hypercapnia Allergic rhinitis due to allergen Chronic low back pain Chronic renal insufficiency, stage II (mild) Decreased glomerular filtration rate (GFR) Graves disease HTN (hypertension) Incisional abscess Pancreatic duct calculus Plantar wart of right foot Pneumonia Restless leg syndrome Severe sepsis SIRS (systemic inflammatory response syndrome) Somnolence Surgical History Hx of cholecystectomy Family History Other Arthritis CHF (congestive heart failure) Cancer Hyperlipidemia Hypertension Social History Smoking and tobacco status: current every day smoker cigarettes Packs smoked per day: 0.5 Second hand smoke exposure: Yes Alcohol intake: current Alcohol intake frequency: holidays/special occasions only Alcohol type: beer Substance/Drug Use: never Household members: family and children Current occupational status: unemployed Vitals/I&O/Wt Last Vital Signs Temp 97.8 F 12/26/22 16:46 Pulse 76 12/26/22 18:12 Resp 17 12/26/22 18:12 BP 106/58 12/26/22 18:12 Pulse Ox 93 12/26/22 18:12 O2 Del Method Nasal Cannula 12/26/22 18:12 O2 Flow Rate 4 12/26/22 18:12 12/26/22 12/26/22 12/26/22 06:59 14:59 22:59 Intake Total 50 / 50 Balance 50 / 50 Weight last 48 hrs Weight 81.647 kg Physical Exam Narrative: No active signs of wheezing No sign of any distress Kernig's and Brudzinski's sign negative Abdomen soft S1, S2 Currently on 4 L of oxygen Getting IV fluids for hypotension Patient is pleasant and cooperative NIH 0 Nonfocal neuro exam GCS 15 No signs of confusion at all Data 12/26/22 17:38 12/26/22 17:38 A&P Assessment and plan (1) Altered mental status: (2) Acidosis, lactic: (3) Hypothyroid: (4) TEAGAN (acute kidney injury): (5) Dehydration: Plan Metabolic encephalopathy My differential includes seizure breakthrough seizure Hypothyroidism Severe dehydration High lactic acid could be explained because of diarrhea dehydration She will get IV antibiotics along IV fluids No signs of meningismus No signs of stroke TEAGAN: Related dehydration Discontinue ibuprofen I will discontinue amitriptyline We will give her extra dose of levothyroxine I will give her 1 dose of Keppra as well She does not show any signs of stroke meningismus Repeat lactic acid I will give her doxycycline vancomycin and ceftriaxone Admit to MedSurg Continue IV fluids Full code Cardiac diet Chronic hypoxia patient uses 2 L only at nighttime Currently on 4 L Severe metabolic acidosis with TEAGAN anticipating improvement with IV fluids we w ill give her 1 amp of bicarb Attestations Medical Necessity Statement*: Anticipating more than 2 midnights management of metabolic encephalopathy Diagnoses Altered mental status R41.82 Acidosis, lactic E87.20 Hypothyroid E03.9 TEAGAN (acute kidney injury) N17.9 Dehydration E86.0
[2022-12-26] MEDS: sodium chloride 0.9% 500 ML 999 ML IV (19:27)
[2022-12-26 19:30] LABS: Reflex Lactate Order REFLEX LACTIC ORDERD
[2022-12-26 19:41] LABS: CSF Mononuclear # 0.003 10^3/uL (50-90); Mononuclear WBC CSF % 100 % (50-90); Polynuclear WBC CSF % 0 % (0-10); Red Blood Cell CSF 0 10^3/uL (0-0); White Blood Cell CSF 3 /uL (0-5)
[2022-12-26 19:51] LABS: Cyto Order Verification No Order
[2022-12-26 19:54] LABS: Appearance CSF CLEAR (CLEAR); Color CSF COLORLESS (COLORLESS)
[2022-12-26 20:03] LABS: Glucose CSF 70 mg/dL (40-70); Total Protein CSF 54 mg/dL (15-45)
[2022-12-26] MEDS: acetaminophen 500 mg Tablet 1000 MG PO (20:11)
[2022-12-26] MEDS: vancomycin 1,000 MG in sodium chloride 0.9% 250 ML 250 MG IV (20:12)
[2022-12-26 20:31] LABS: D Dimer 0.43 ug/mIFEU (0-0.59)
[2022-12-26 20:35] LABS: Lactic Acid level (Lactate) 3.2 mmol/L (0.5-2.2)
[2022-12-26 20:48] LABS: Prolactin 11.81 ng/mL (4.8-23.3)
[2022-12-26 21:02] LABS: Troponin 5 2HR 11.63 ng/L (0-10)
[2022-12-26 21:05] LABS: Troponin 5 2HR Delta -1.37 ABS# (0-10)
[2022-12-26] MEDS: morphine IR 15 mg Tablet PO (21:31)
[2022-12-26] MEDS: sodium bicarbonate 1 mEq/mL SDV 50mL 100 MEQ IVP (21:36)
[2022-12-26 21:37] LABS: Thyroid Stimulating Hormone 7.73 uIU/mL (0.27-4.20)
[2022-12-26] MEDS: sodium chloride 0.9% 1,000 ML 75 ML IV (21:37)
[2022-12-26] MEDS: doxycycline 100 MG in sodium chloride 0.9% (plus) 100 ML IV (21:38)
--- NOTE | 2022-12-26 22:39 | PC.NURSE ---
Patient does not know the names of her home medications. Patient states she uses [facility] pharmacy. Pharmacy will need to be called in AM to get patient's list of home medications.
--- NOTE | 2022-12-26 22:52 | ECG_ITS ---
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 Measurements Intervals [place] Rate: 72 P: 9 [place]: 170 QRS: 41 QRSD: 90 T: 55 QT: 384 QTc: 421 Interpretive Statements SINUS RHYTHM LOW QRS VOLTAGE IN PRECORDIAL LEADS [QRS DEFLECTION < 1.0 mV IN CHEST LEADS] NONSPECIFIC ST & T-WAVE ABNORMALITY Compared to ECG 12/26/2022 18:56:22 T-wave abnormality now present Electronically Signed On 12-27-2022 8:45:38 CDT by Lester Caruso M.D. [email or web address] Systemsgulf coast veterans health care systemFleet [address] Energyblanchard valley [id number]
--- NOTE | 2022-12-26 23:02 | PC.NURSE ---
ADMIT NOTE Pt received to room at 2230 from the ED. Is alert and oriented. Tells me she has had a severe headache for the last couple of days as well as some diarrhea but otherwise says sh has not felt sick. Denies any fevers. Says she got her grandaughter on the school bus this morning then went back to bed and the next thing she knew her daughter was trying to wake her up. Says she has had these episodes before but has never been able to find out why. Had a LP in the ED. Bandaid to medial lower back is C&D. IV's to both ac's. IV Fluids infusing at 75ml/hr rate. Received X3 antibiotics in the ER. O2 in placae at 4l per NC. Instructed not to be up without assist. Bed alarm on. RN completed admission assessment
[2022-12-26 23:47] LABS: Troponin 5 6HR 12.59 ng/L (0-10)
[2022-12-26 23:54] LABS: Troponin 5 6HR Delta -0.41 ng/L (0-12)
[2022-12-27] VITALS (10 sets, daily range): BP systolic 93–130; BP diastolic 63–80; PULSE 54–82; RESP 16–18; TEMP 36.4–37; O2SAT 85–99
[2022-12-27 00:55] LABS: Vitamin B12 929 pg/mL (232-1245)
[2022-12-27 02:57] LABS: Basophils % 0.2 %; Hematocrit 33.1 % (37.0-47.0); Hemoglobin 10.4 g/dL (11.5-15.3); Lymphocytes # 1.8 10^3/uL (0.8-4.8); Lymphocytes % 15.7 %; Mean Corpuscular HGB Conc 31.4 g/dL (30.0-36.0); Mean Corpuscular Hemoglobin 32.4 pg (28.0-34.0); Mean Corpuscular Volume 103.1 fl (81-99); Mean Platelet Volume 10.1 fL (7.4-10.4); Monocytes # 0.7 10^3/uL (0.2-0.9); Monocytes % 5.7 %; Neutrophils # 8.91 10^3/uL (1.8-7.7); Neutrophils % 77.5 %; Nucleated Red Blood Cells % 0 %; Platelet Count 185 10^3/cmm (130-400); Red Blood Count 3.21 10^6/uL (4.1-5.3); Red Cell Distribution Width 15.8 % (12.1-15.1); White Blood Count 11.5 10^3/uL (4.0-10.0)
[2022-12-27 03:14] LABS: Alanine Aminotransferase 7 U/L (0-33); Alkaline Phosphatase 63 U/L (35-105); Anion Gap 12.8 (5-19); Aspartate Amino Transferase 21 U/L (0-32); Blood Urea Nitrogen 14 mg/dL (6-20); C Reactive Protein 171.6 mg/L (0.0-4.9); Calcium 7.5 mg/dL (8.5-10.5); Carbon Dioxide 25 mmol/L (22-29); Chloride 108 mmol/L (98-107); Globulin 2.4 g/dL (1.3-4.6); Glomerular Filtration Rate 51.6 mL/min (90-130); Glucose 106 mg/dL (65-115); Magnesium 1.3 mg/dL (1.7-2.3); Osmolality Calculated 295 mOsm/kg (285-295); Phosphorus 3.7 mg/dL (2.5-4.5); Potassium 3.8 mmol/L (3.5-5.1); Sodium 142 mmol/L (136-145); Total Bilirubin 0.3 mg/dL (0.15-1.2); Total Protein 5.4 g/dL (6.6-8.7)
[2022-12-27 03:26] LABS: Slide Review Slide Review Perform
[2022-12-27] MEDS: morphine IR 15 mg Tablet PO ×2 (03:40→13:09)
[2022-12-27] MEDS: metoprolol tartrate 50 mg Tablet 25 MG PO (08:45)
[2022-12-27] MEDS: aspirin 325 mg Tablet PO (08:45)
[2022-12-27] MEDS: sennosides-docusate Tablet 1 TAB PO (08:45)
[2022-12-27] MEDS: fluticasone nasal spray 16gm Btl 2 SPRAY NASAL (08:45)
[2022-12-27] MEDS: levothyroxine 150 mcg Tablet PO (08:45)
[2022-12-27] MEDS: cefTRIAXone 2,000 MG in sodium chloride 0.9% (plus) 50 ML 100 MG IV (09:19)
[2022-12-27] MEDS: doxycycline 100 MG in sodium chloride 0.9% (plus) 100 ML IV (09:51)
--- NOTE | 2022-12-27 10:17 | PC.CHAP ---
Pastoral Care Encounter/Spiritual Assessment Type of Contact [] Declined emergency medicine specialist visit [] Patient/Family/Request visit [] Outpatient visit [] Follow-up visit [] Physician referral [] Code/Alert [x] Routine visit [] Staff referral [] Actively dying [] Patient sleeping [x] Family support [] [] Out of room [] Palliative care [] [] Receiving care in room [] Pre-surgical visit [] Trauma [] Long length of stay [] ICU visit [] Other: Relational/Emotional Strength [x] Patient feels connected with others/family/visitors/staff [] Distress [] Loneliness/isolation [] Abandonment Spirituality of Patient [x] Person of Faviola [] Attends Buddhism of their Faviola [x] Believes in Prayer [] Reads Bible or Jehovah'S Witness materials [] There are Spiritual issues to be addressed 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 Interventions [x] Prayer [x] Active listening [] Non-anxious presence [] Spiritual/emotional support [] Crisis/trauma care [] Spiritual counseling [] Bereavement support [] Provided bereavement packet [] Provided Bible/devotional materials [] Provided toy/stuffed animal, coloring book to patient or family member [] Provided Communion [] Anointing/[place] [] Salvation [x] Completed spiritual assessment [] Other: Impact on Illness or Injury [] Angry [] Fearful [x] Anxious [] Often cries [] Exhaustion [] Unable to work [] Unable to attend gnosticist [] Unable to walk/stand [] Unable to read [] Unable to drive [] Unable to eat/drink [] Unable to sleep [] Unable to be with family [] Patient intubated [] Other: Summary patient very confused Time spent with patient 15 min
--- NOTE | 2022-12-27 10:55 | P.PN_ITS ---
Subjective Subjective: Patient is awake and alert No overnight events noted discontinue Yumiko No signs of meningitis Likely sleep apnea and abnormal thyroid function because of the confusion Patient is in agreement No active chest pain Vitals/I&O/Wt Last Vital Signs Temp 98.0 F 12/27/22 07:37 Pulse 74 12/27/22 08:00 Resp 16 12/27/22 08:00 BP 115/78 12/27/22 07:37 Pulse Ox 96 12/27/22 08:00 O2 Del Method Nasal Cannula 12/27/22 08:00 O2 Flow Rate 3 12/27/22 08:00 12/26/22 12/27/22 12/27/22 22:59 06:59 14:59 Intake Total 3010 / 3010 240 / 3250 290 / 290 Output Total 400 / 400 Balance 3010 / 3010 -160 / 2850 290 / 290 Weight last 48 hrs Weight 81.647 kg Physical Exam Narrative: Awake and alert Nonfocal neuro exam No sign of meningismus GCS 15 Abdomen soft EOMI, PERRLA S1, S2 Data 12/27/22 02:34 12/27/22 02:34 Micro: Microbiology 12/26/22 19:20 Gram Stain - Final Cerebrospinal Fluid A&P Assessment and plan (1) Dehydration: (2) TEAGAN (acute kidney injury): (3) Hypothyroid: (4) Altered mental status: (5) Acidosis, lactic: Plan Discontinue IV antibiotics No signs of meningitis Continue levothyroxine Continue DuoNeb and aspirin Discontinue IV fluids -Encourage patient to eat better Most likely she was suffering from sleep apnea related metabolic encephalopathy with underlying thyroid abnormality Discharge tomorrow Full code Cardiac diet Attestations Medical Necessity Statement*: Discharge tomorrow Coding Level of Care Code 12710 Moderate MDM includes number and complexity of problems actively addressed during encounter, amount and/or complexity of data reviewed/ordered and described risk of complication, morbidity or mortality of management as doc umented Diagnoses Dehydration E86.0 TEAGAN (acute kidney injury) N17.9 Hypothyroid E03.9 Altered mental status R41.82 Acidosis, lactic E87.20
[2022-12-27] MEDS: magnesium sulfate premix 2 GM/50 ML PIGGYBACK IV (11:12)
--- NOTE | 2022-12-27 16:48 | XRR_ITS ---
PROCEDURE INFORMATION: Exam: XR Chest Exam date and time: 12/27/2022 3:58 PM Age: 57 years old Clinical indication: Shortness of breath; Additional info: Hypoxia TECHNIQUE: Imaging protocol: Radiologic exam of the chest. Views: 1 view. COMPARISON: CR (CHEST, ) 12/26/2022 5:18 PM FINDINGS: Lungs: Right lower lobe pneumonia. Pleural spaces: Unremarkable. No pleural effusion. No pneumothorax. Heart/Mediastinum: Cardiomegaly and mild pulmonary vascular congestion. Bones/joints: Unremarkable. XR/XR chest 1V portable [id number] IMPRESSION: 1. Right lower lobe pneumonia. 2. Cardiomegaly and mild pulmonary vascular congestion.
[2022-12-27] MEDS: SUMAtriptan 25 mg Tablet 50 MG PO (17:19)
[2022-12-27] MEDS: doxycycline 100 mg Tablet PO (17:19)
--- NOTE | 2022-12-27 17:30 | PC.PHAR ---
[id number] VANCOMYCIN. Patient received 1g in er 12/26 at 1999. [id number] order entered at that time but discontinued before first dose. Order to restart will begin dosing at 1250 q18h @1800. Q18 dosing will put ideal level at inopportune time so will put in trough before 5th at 1700 on the to stay within policy. Patient parameters might shift estimated result but this should return a level ~13.
[2022-12-27] MEDS: ketorolac 30 mg/mL INJ 15 MG IVP (17:33)
[2022-12-27] MEDS: vancomycin 1,250 MG/250 ML PIGGYBACK 250 MG IV (18:35)
[2022-12-27] MEDS: budesonide 0.5 mg/2 mL Neb INHALATION (20:40)
[2022-12-28] VITALS (10 sets, daily range): BP systolic 126–166; BP diastolic 73–84; PULSE 57–92; RESP 16–19; TEMP 36.1–37.1; O2SAT 90–98
[2022-12-28] MEDS: morphine IR 15 mg Tablet PO ×2 (02:59→20:10)
[2022-12-28] MEDS: acetaminophen 500 mg Tablet PO (04:19)
[2022-12-28 04:44] LABS: Hematocrit 36.1 % (37.0-47.0); Hemoglobin 11.4 g/dL (11.5-15.3); Mean Corpuscular HGB Conc 31.6 g/dL (30.0-36.0); Mean Corpuscular Hemoglobin 32.3 pg (28.0-34.0); Mean Corpuscular Volume 102.3 fl (81-99); Mean Platelet Volume 9.8 fL (7.4-10.4); Platelet Count 213 10^3/cmm (130-400); Red Blood Count 3.53 10^6/uL (4.1-5.3); Red Cell Distribution Width 16.2 % (12.1-15.1); White Blood Count 11.9 10^3/uL (4.0-10.0)
[2022-12-28 05:10] LABS: Blood Urea Nitrogen 11 mg/dL (6-20); Calcium 8.8 mg/dL (8.5-10.5); Carbon Dioxide 27 mmol/L (22-29); Chloride 105 mmol/L (98-107); Glomerular Filtration Rate 86.9 mL/min (90-130); Glucose 106 mg/dL (65-115); Osmolality Calculated 288 mOsm/kg (285-295); Sodium 139 mmol/L (136-145)
[2022-12-28 05:17] LABS: Absolute Segmented Neutrophil 9.2 10/cmm (1.6-7.1); Eosinophils 0 %; Lymphocytes 16 %; Monocytes Absolute 0.1 10^3/cmm (0.1-0.6); Segmented Neutrophils 77 %; Slide Review Slide Review Perform; Total Cells Counted 100 (0-100)
[2022-12-28 05:18] LABS: Absolute Neutrophil 9.2 10^3/cmm (1.4-6.5); Platelet Estimate Normal (Normal)
--- NOTE | 2022-12-28 08:14 | USCV_ITS ---
Arcelia Harris Age: 57 Gender: F : 1965 Exam Date: 12/28/2022 12:32 Ordering Phys: Facundo Rene MD Technologist: ALLIE Exam Location: [facility] [place] Indication: chf BP: / HR: 60 Rhythm: Sinus Technical Quality: Adequate MEASUREMENTS (Male / Female) Normal Values 2D ECHO LV Diastolic Diameter PLAX 4.8 cm 4.2 - 5.9 / 3.9 - 5.3 cm LV Systolic Diameter PLAX 3.7 cm IVS Diastolic Thickness 0.7 cm 0.6 - 1.0 / 0.6 - 0.9 cm IVS Systolic Thickness 1.5 cm LVPW Diastolic Thickness 0.7 cm 0.6 - 1.0 / 0.6 - 0.9 cm LVPW Systolic Thickness 1.2 cm LVOT Diameter 2.3 cm LV Ejection Fraction 2D Teich 43.8 % LV Ejection Fraction MOD 2C 61.5 % LV Ejection Fraction 2C AL 60.5 % LA Diameter 3.9 cm IVC Diameter 2.0 cm M-MODE Aortic Annulus Diameter 2.7 cm LA Ao Ratio MM 1.6 MV E Point Septal Separation 0.6 cm DOPPLER AV Peak Velocity 129.0 cm/s LVOT Peak Velocity 111.0 cm/s AV Area Cont Eq vti 3.3 cm squared AV Area Cont Eq pk 3.5 cm squared MV Area PHT 2.9 cm squared Mitral E to A Ratio 0.9 MV E' Velocity 39.0 cm/s Mitral E to MV E' Ratio 8.3 Mitral E to LV E' Lateral Ratio 7.7 Mitral E to LV E' Septal Ratio 9.1 TV Peak E Velocity 41.0 cm/s PV Peak Velocity 85.0 cm/s FINDINGS Left Ventricle Left ventricle is normal in size. LV systolic function is normal with EF of 55-60%. No regional wall motion abnormalities are seen. Grade 1 diastolic dysfunction. Right Ventricle Normal in size and function Right Atrium Normal in size Left Atrium Dilated Mitral Valve Structurally normal mitral valve. Mild mitral regurgitation. Aortic Valve Structurally normal aortic valve. No significant stenosis or regurgitation. Tricuspid Valve Mild tricuspid regurgitation. Insufficient TR jet to evaluate RVSP Pulmonic Valve Not well visualized Pericardium Normal Aorta Normal in size IVC Appears to be normal CONCLUSIONS LV systolic function is normal with EF of 55 to 60% Grade 1 diastolic dysfunction Dilated left atrium Mild mitral regurgitation Mild tricuspid regurgitation No comparison studies are available Lester Caruso MD (Electronically Signed) Final Date: 28 December 2022 17:39 S
[2022-12-28] MEDS: FUROsemide 10 mg/mL SDV 2mL 20 MG IVP (08:58)
[2022-12-28] MEDS: metoprolol tartrate 50 mg Tablet 25 MG PO (08:59)
[2022-12-28] MEDS: sennosides-docusate Tablet 1 TAB PO (09:00)
[2022-12-28] MEDS: doxycycline 100 mg Tablet PO ×2 (09:01→17:53)
[2022-12-28] MEDS: loratadine 10 mg Tablet PO (09:01)
[2022-12-28] MEDS: fluticasone nasal spray 16gm Btl 2 SPRAY NASAL (09:01)
[2022-12-28] MEDS: aspirin 325 mg Tablet PO (09:01)
[2022-12-28] MEDS: levothyroxine 150 mcg Tablet PO (09:01)
[2022-12-28] MEDS: budesonide 0.5 mg/2 mL Neb INHALATION ×2 (09:13→20:29)
[2022-12-28] MEDS: ipratropium-albuterol 3 mL Neb INHALATION ×2 (09:13→20:29)
--- NOTE | 2022-12-28 09:30 | PC.NURSE ---
Daughter Leroy called for update. This nurse gave update from through the night. Daughter upset because feeling like she is not being heard, feels that her mother is not getting the care she needs here and has explained to everyone what the problem is. Message passed to Dr. Rene. Dr. Rene called daughter.
[2022-12-28] MEDS: cefTRIAXone 2,000 MG in sodium chloride 0.9% (plus) 50 ML 100 MG IV (09:40)
--- NOTE | 2022-12-28 10:47 | PM.PN ---
Vitals/I&O/Wt Last Vital Signs Temp 97.0 F L 12/28/22 08:00 Pulse 92 12/28/22 09:13 Resp 18 12/28/22 09:13 BP 134/73 12/28/22 08:00 Pulse Ox 94 12/28/22 09:13 O2 Del Method Nasal Cannula 12/28/22 09:13 O2 Flow Rate 2 12/28/22 09:13 12/27/22 12/28/22 12/28/22 22:59 06:59 14:59 Intake Total 370 / 1810 240 2049 Balance 370 / 0 2049 Weight last 48 hrs Weight 81.647 kg Data 12/28/22 04:13 12/28/22 04:13 Micro: Microbiology 12/26/22 19:20 Gram Stain - Final Cerebrospinal Fluid CSF Culture - Preliminary 12/26/22 23:30 MRSA Culture - Final Nose A&P Assessment and plan (1) TEAGAN (acute kidney injury): (2) Dehydration: (3) Hypothyroid: (4) Altered mental status: (5) Acidosis, lactic: (6) Metabolic encephalopathy: (7) Right lower lobe pneumonia: (8) Hypoxia: (9) Headache: Plan 57-year-old female who was admitted for management of metabolic encephalopathy, lactic acid 7 , TEAGAN, creatinine 1.7, as per the family most of the time she gets unresponsive and they have to wake her up around noon, she has recently moved from [place], there is concern for stone in the pancreas, patient does not complain of any abdominal pain after meals, her TSH was 12 on admission, she was started on higher dose of levothyroxine, she has not taken levothyroxine dose for quite some time, chronically she uses 2 L of oxygen at night, she has not used it for quite some time as well, differential initially included meningitis, hypothyroidism, breakthrough seizure. CSF showing monocytes, patient has remained afebrile complaining of persistent headache and neck pain I will request MRV to rule out cerebral venous thrombosis, patient has been experiencing sinus congestion for the last 2 weeks, no confusion noted this hospitalization, I have kept her on antibiotics, she became fluid overloaded from all the fluids and antibiotics gave her Lasix requested echo I am requesting pulse ox overnight to refer her for sleep study. Sister is very concerned that she lives alone and some days she will not wake up from her sleep I did tell her that we still in the midst of investigating her, during hospitalization she has developed right lower lobe pneumonia most likely related to aspiration, she is requiring 3 to 4 L of oxygen now, Metabolic encephalopathy: Resolved Differentials include, sleep apnea, breakthrough seizure, severe hypothyroidism, meningitis, cerebral venous thrombosis Severe metabolic acidosis: Resolved Related to dehydration Patient was experiencing diarrhea before she presented to the ER No signs of seizure or sepsis Patient has remained afebrile Persistent headache with neck pain Afebrile CSF clear with high protein and monocytes I have continued her antibiotics Requesting MRV We will give her a dose of sumatriptan Acute on chronic hypoxia Patient was requiring 3 to 4 L of oxygen however we were able to wean her oxygen down to 2 L which is her home requirement Given 1 dose of Lasix 20 mg today Requested echo Right lower lobe pneumonia Concern for aspiration Continue antibiotics We will request sputum and blood cultures, she has been afebrile she was not septic, they were not obtained at the time of admission We will request overnight pulse ox study to refer her for sleep study outpatient Severe hypothyroidism I have increased the dose of levothyroxine TEAGAN: Resolved with IV fluid hydration Full code Cardiac diet GCS 15 Spoke with her sister who had a lot of concerns because patient lives alone and she is scared that 1 day she might not be able to wake up [phone]: Malika Pancreatic stone: No active complaints, will request records from [facility], sister will tell us about the name of the hospital Attestations Medical Necessity Statement*: Continue medical management Diagnoses TEAGAN (acute kidney injury) N17.9 Dehydration E86.0 Hypothyroid E03.9 Altered mental status R41.82 Acidosis, lactic E87.20 Metabolic encephalopathy G93.41 Right lower lobe pneumonia J18.9 Hypoxia R09.02 Headache R51.9
[2022-12-28 11:03] LABS: Procalcitonin 1.82 ng/mL (0-0.5)
--- NOTE | 2022-12-28 11:14 | PC.NURSE ---
Patient complaining of a headache. Does not want morphine, thinks it makes it worse. Dr. Rene gave verbal order of Sumatriptan 25 mg PO one time dose.
[2022-12-28] MEDS: SUMAtriptan 25 mg Tablet PO (12:08)
[2022-12-28] MEDS: vancomycin 1,250 MG/250 ML PIGGYBACK 250 MG IV (12:09)
--- NOTE | 2022-12-28 17:57 | PC.NURSE ---
spoke with german, feel the patient could benefit from an incentive spirometer
[2022-12-29] VITALS (10 sets, daily range): BP systolic 135–167; BP diastolic 71–95; PULSE 58–79; RESP 17–27; TEMP 36.1–38.2; O2SAT 87–94
[2022-12-29 03:58] LABS: Basophils # 0.1 10^3/uL (0.0-0.1); Basophils % 0.4 %; Eosinophils % 0.1 %; Hematocrit 34.5 % (37.0-47.0); Hemoglobin 11.3 g/dL (11.5-15.3); Lymphocytes # 2.1 10^3/uL (0.8-4.8); Lymphocytes % 14.8 %; Mean Corpuscular HGB Conc 32.8 g/dL (30.0-36.0); Mean Corpuscular Hemoglobin 32.3 pg (28.0-34.0); Mean Corpuscular Volume 98.6 fl (81-99); Mean Platelet Volume 10.1 fL (7.4-10.4); Monocytes # 0.6 10^3/uL (0.2-0.9); Monocytes % 4.2 %; Neutrophils # 11.13 10^3/uL (1.8-7.7); Nucleated Red Blood Cells % 0 %; Platelet Count 208 10^3/cmm (130-400); Red Cell Distribution Width 15.5 % (12.1-15.1); White Blood Count 13.9 10^3/uL (4.0-10.0)
[2022-12-29 04:15] LABS: Anion Gap 12.8 (5-19); Blood Urea Nitrogen 6 mg/dL (6-20); Calcium 8.8 mg/dL (8.5-10.5); Carbon Dioxide 30 mmol/L (22-29); Chloride 99 mmol/L (98-107); Glomerular Filtration Rate 103.8 mL/min (90-130); Glucose 88 mg/dL (65-115); Osmolality Calculated 285 mOsm/kg (285-295); Sodium 139 mmol/L (136-145)
[2022-12-29 04:19] LABS: Potassium 2.8 mmol/L (3.5-5.1)
[2022-12-29 04:21] LABS: Procalcitonin 0.86 ng/mL (0-0.5)
[2022-12-29 04:24] LABS: Alanine Aminotransferase 9 U/L (0-33); Albumin Level 3.1 g/dL (3.5-5.2); Alkaline Phosphatase 104 U/L (35-105); Anion Gap 13.8 (5-19); Aspartate Amino Transferase 17 U/L (0-32); Blood Urea Nitrogen 6 mg/dL (6-20); Calcium 8.8 mg/dL (8.5-10.5); Carbon Dioxide 29 mmol/L (22-29); Chloride 100 mmol/L (98-107); Globulin 2.6 g/dL (1.3-4.6); Glomerular Filtration Rate 128.1 mL/min (90-130); Glucose 86 mg/dL (65-115); Osmolality Calculated 287 mOsm/kg (285-295); Sodium 140 mmol/L (136-145); Total Bilirubin 0.4 mg/dL (0.15-1.2); Total Protein 5.7 g/dL (6.6-8.7)
[2022-12-29 04:42] LABS: Potassium 2.8 mmol/L (3.5-5.1)
[2022-12-29] MEDS: lidocaine 1% 5 ML in potassium chloride premix 100 ML 26.25 ML IV (05:06)
[2022-12-29] MEDS: vancomycin 1,250 MG/250 ML PIGGYBACK 250 MG IV ×2 (06:25→23:39)
[2022-12-29] MEDS: metoprolol tartrate 50 mg Tablet 25 MG PO (09:05)
[2022-12-29] MEDS: doxycycline 100 mg Tablet PO (09:05)
[2022-12-29] MEDS: loratadine 10 mg Tablet PO (09:05)
[2022-12-29] MEDS: levothyroxine 150 mcg Tablet PO (09:05)
[2022-12-29] MEDS: sennosides-docusate Tablet 1 TAB PO (09:05)
[2022-12-29] MEDS: fluticasone nasal spray 16gm Btl 2 SPRAY NASAL (09:05)
[2022-12-29] MEDS: ondansetron 2 mg/ML SDV 2 mL 4 MG IVP (09:06)
[2022-12-29] MEDS: cefTRIAXone 2,000 MG in sodium chloride 0.9% (plus) 50 ML 100 MG IV (09:06)
[2022-12-29] MEDS: morphine IR 15 mg Tablet PO (09:29)
[2022-12-29] MEDS: aspirin 81 mg EC Tablet PO (09:29)
[2022-12-29 11:40] LABS: ABG PCO2 41.4 mmHg (35-45); ABG PH Result 7.45 (7.35-7.45); Arterial Blood Gas Hematocrit 36.5 % (37-47); Base Excess ABG 4.1 mmol/L (-2.0-2.0); Blood Gas Allen Test Pos; Blood Gas Sample Type Arterial; HCO3 ABG 28.6 mmol/L (22-26); HGB O2 Sat 94.8 % (95-100); Ionized Calcium Level - ABG 1.1 mmol/L (1.1-1.4); Methemoglobin 0.6 % (0.4-1.5); Oxygen Saturation ABG 96.3; PO2 ABG 74.8 mmHg (80.0-100.0); Potassium Level - ABG 3.1 mmol/L (3.5-5.0); Total Hemoglobin 11.9 g/dL (12-16)
[2022-12-29 11:42] LABS: Alveolar-Arterial Oxygen Gradi 9.5 mmHg (5-10); Blood Gas Operator Identificat MONRO; Blood Gas Sample Site Radial, right; Oxygen Device NC
[2022-12-29 12:17] LABS: Cortisol Random 15.44 ug/dL (2.47-19.5)
[2022-12-29 12:27] LABS: Iron 18 ug/dL (37-145); Thyroid Stimulating Hormone 8.92 uIU/mL (0.27-4.20); Total Iron Binding Capacity 163 mcg/dl; Unsaturated Iron Binding 145 ug/dL (112-347)
[2022-12-29 12:30] LABS: Free T4 Free Thyroxine 0.87 ng/dL (0.82-1.77)
[2022-12-29] MEDS: potassium chloride ER 20 mEq Tablet 80 MEQ PO (12:34)
[2022-12-29] MEDS: citalopram 20 mg Tablet PO (12:34)
[2022-12-29] MEDS: amlodipine 5 mg Tablet PO (12:35)
--- NOTE | 2022-12-29 14:04 | USR_ITS ---
PROCEDURE INFORMATION: Exam: US Soft Tissue Head and Neck, Thyroid Exam date and time: 12/29/2022 8:00 PM Age: 57 years old Clinical indication: Condition or disease; Thyroid disorder; Thyrotoxycosis or graves' disease; With diffuse goiter; Severity not specified; Additional info: H/o graves TECHNIQUE: Imaging protocol: Real-time ultrasound scan of the neck with image documentation. Exam focused on the thyroid. COMPARISON: US thyroid [id number] 03/22/2016 3:43 PM FINDINGS: Right thyroid lobe: No nodules. Left thyroid lobe: No nodules. Isthmus: No nodules. US/US thyroid [id number] IMPRESSION: Unremarkable thyroid.
--- NOTE | 2022-12-29 14:06 | PM.PN ---
Subjective Subjective: Hospital course, labs appreciated. Examination patient seen sitting up in bed. States she is feeling a lot better. Continues to remain [place] oxygen supplementation. States that she is less tired and sleepy now. Seen the daughter at bedside. As per both patient and patient's daughter she moved from [place] recently within the last 1 month to live closer to family. She has been having recurrent episodes of daytime sleepiness for last 1 year with most recently prior to the day of admission. Denies any recent changes in medications. States headache now less frequent now but usually frontal and feels as if somebody is pressing on her head not associated with any constitutional symptoms. No relieving or aggravating factors. On reviewing of her medications it seems last refill of levothyroxine was in July for a 90-day supply which lasted her until early December of this year. Patient states she has to be on oxygen on and off especially at night but has not been using it since moving to [place] because she did not have any oxygen supplies. Does not have any primary care provider since moving over here. Gives history of a possible stone in pancreas. Vitals/I&O/Wt Last Vital Signs Temp 97.5 F L 12/29/22 12:00 Pulse 58 L 12/29/22 12:00 Resp 20 H 12/29/22 12:00 BP 159/81 12/29/22 12:36 Pulse Ox 94 12/29/22 12:00 O2 Del Method Nasal Cannula 12/29/22 12:00 O2 Flow Rate 2 12/29/22 08:00 12/28/22 12/29/22 12/29/22 22:59 06:59 14:59 Intake Total 480 / 1260 200 / 1460 250 / 250 Output Total 900 / 900 Balance 480 / 1260 -700 / 560 250 / 250 Physical Exam Narrative: General: No acute distress, AO x3, NC oxygen supplementation, lethargic but able to have complete conversations. HEENT: PERRLA, pupils bilaterally equal and reactive Chest: Normal vesicular breath sounds all over lung menjivar without coarse crackles but with occasional rhonchi CVS: S1-S2 regular, no murmurs, no tachycardia, no gallops, no rubs Abdomen: Soft, nontender, no organomegaly, bowel sounds present, morbidly obese Neuro: No focal deficits, no facial deformity, AO x3, power 5/5 in all limbs Data 12/29/22 02:48 12/29/22 02:48 Micro: Microbiology 12/28/22 11:50 Blood Culture - Preliminary Blood NEGATIVE TO DATE 12/28/22 11:50 Blood Culture - Preliminary Blood NEGATIVE TO DATE 12/26/22 19:20 Gram Stain - Final Cerebrospinal Fluid CSF Culture - Final A&P Assessment and plan (1) Daytime sleepiness: (2) Severe hypothyroidism: (3) Hypoxia: (4) Right lower lobe pneumonia: (5) Metabolic encephalopathy: (6) Headache: (7) Dehydration: (8) TEAGAN (acute kidney injury): (9) Hypothyroid: (10) Acidosis, lactic: (11) Altered mental status: Qualifiers: Altered mental status type: somnolence Qualified Code(s): R40.0 - Somnolence Plan For DVT ProfenHospital course: 57-year-old female who was admitted who was recently moved from outside setting with history of hypothyroidism, Graves' disease presented with altered mental status and somnolence with history of daytime somnolence for last 1 years admitted for management of metabolic encephalopathy, lactic acid 7 , TEAGAN, creatinine 1.7. Altered mental status: Resolved. Acute metabolic encephalopathy: Most likely in setting of hypercapnia, acute kidney injury, metabolic and respiratory acidosis on admission secondary dehydration, hypoxia in setting of aspiration pneumonia, myxedema without coma in setting of severe hypothyroidism. Acute kidney injury along with metabolic acidosis and hypercapnia have resolved with improvement in mentation with IV hydration. Excessive daytime sleepiness: Could be multifactorial. Could be secondary to severe hypothyroidism because of noncompliance to medications. Noncompliance to oxygen as it seems patient needs to be on 2 L of oxygen supplementation which she is not using currently. Found to be hypercapnic on admission. Cannot rule out undiagnosed sleep apnea. Narcolepsy could not be ruled out. Lumbar considering a remission appreciated. CSF study showing mildly elevated monocytes with protein of 70 and a normal glucose. Follow-up CSF cultures. For now very low probability of meningitis given no meningeal signs. Stop doxycycline. Severe hypothyroidism: Myxedema without coma. Repeat thyroid panel. If persistently elevated TSH we will switch to IV levothyroxine. Check cortisol levels. Past history of Graves' disease. Check thyroid ultrasound. Headache: Could be in setting of uncontrolled hypertension. Blood pressure since admission more than 155 systolics. MRV ordered by previous physician. We will continue to follow-up. Will get MRI head given symptoms of excessive daytime sleepiness, ultimately status on admission and persistent occasional headaches. Tramadol as needed for pain. Hypertension: Goal blood pressure less than 140/90 mmHg. Start on amlodipine 5 mg oral daily. Uptitrate as her blood pressures. Patient slightly bradycardic. Change metoprolol to 12.5 mg twice daily. Hypoxia: Most likely in setting of possible aspiration when patient was altered. Sputum culture not available. Check MRSA swab. For now continue with IV ceftriaxone at 1 g daily dose along with IV vancomycin. The patient remains afebrile for next 48 hours we will switch to oral antibiotics. Echocardiogram results appreciated. Follow-up blood cultures, sputum culture, CSF cultures when available. Severe metabolic acidosis: Resolved Related to dehydration Full code. Regular diet. Famotidine for PUD prophylaxis Heparin for DVT prophylaxis. Care discussed in detail with patient, patient's daughter at bedside. All the questions were answered. Attestations Medical Necessity Statement*: Requires further hospitalization for management of excessive daytime somnolence, metabolic encephalopathy in setting of severe hypothyroidism without myxedema coma, hypertension bilateral etiologies were ruled out. Diagnoses Daytime sleepiness R40.0 Severe hypothyroidism E03.9 Hypoxia R09.02 Right lower lobe pneumonia J18.9 Metabolic encephalopathy G93.41 Headache R51.9 Dehydration E86.0 TEAGAN (acute kidney injury) N17.9 Hypothyroid E03.9 Acidosis, lactic E87.20 Altered mental status R40.0 Altered mental status type: somnolence
[2022-12-29] MEDS: heparin 5,000 unit/mL INJ 1 mL 5000 UNIT SUBCUT ×2 (16:02→22:19)
[2022-12-29] MEDS: famotidine 20 mg Tablet PO (18:29)
[2022-12-29] MEDS: TRAMadol 50 mg Tablet PO ×2 (18:31→23:38)
[2022-12-30] VITALS (7 sets, daily range): BP systolic 139–167; BP diastolic 79–87; PULSE 55–64; RESP 16–20; TEMP 36.4–37.3; O2SAT 92–97
[2022-12-30 05:59] LABS: Alanine Aminotransferase 8 U/L (0-33); Albumin Level 3.2 g/dL (3.5-5.2); Alkaline Phosphatase 87 U/L (35-105); Anion Gap 11.1 (5-19); Aspartate Amino Transferase 14 U/L (0-32); Blood Urea Nitrogen 4 mg/dL (6-20); Calcium 8.7 mg/dL (8.5-10.5); Carbon Dioxide 28 mmol/L (22-29); Chloride 101 mmol/L (98-107); Globulin 2.8 g/dL (1.3-4.6); Glomerular Filtration Rate 165.7 mL/min (90-130); Glucose 91 mg/dL (65-115); Osmolality Calculated 278 mOsm/kg (285-295); Potassium 4.1 mmol/L (3.5-5.1); Sodium 136 mmol/L (136-145); Total Bilirubin 0.4 mg/dL (0.15-1.2)
[2022-12-30 06:00] LABS: Chol HDL Ratio 2.68 mg/dL (0.0-4.40); Cholesterol 83 mg/dL (0-200); HDL Cholesterol 31 mg/dL (60-100); LDL Cholesterol Calculated 30 mg/dL (50-129); Triglycerides 110 mg/dL (0-150); VLDL Cholestrol Calculation 22 mg/dL (0-30)
[2022-12-30] MEDS: TRAMadol 50 mg Tablet PO ×3 (06:00→20:19)
[2022-12-30] MEDS: heparin 5,000 unit/mL INJ 1 mL 5000 UNIT SUBCUT ×3 (06:01→23:34)
[2022-12-30 06:54] LABS: Basophils # 0.1 10^3/uL (0.0-0.1); Basophils % 0.7 %; Eosinophils # 0.1 10^3/uL (0.0-0.8); Eosinophils % 1.1 %; Hematocrit 36.1 % (37.0-47.0); Hemoglobin 12.1 g/dL (11.5-15.3); Lymphocytes # 3.3 10^3/uL (0.8-4.8); Lymphocytes % 33.5 %; Mean Corpuscular HGB Conc 33.5 g/dL (30.0-36.0); Mean Corpuscular Hemoglobin 32.8 pg (28.0-34.0); Mean Corpuscular Volume 97.8 fl (81-99); Mean Platelet Volume 9.6 fL (7.4-10.4); Monocytes # 0.6 10^3/uL (0.2-0.9); Monocytes % 6.3 %; Neutrophils # 5.59 10^3/uL (1.8-7.7); Neutrophils % 57.3 %; Nucleated Red Blood Cells % 0 %; Platelet Count 214 10^3/cmm (130-400); Red Blood Count 3.69 10^6/uL (4.1-5.3); Red Cell Distribution Width 15.2 % (12.1-15.1); White Blood Count 9.8 10^3/uL (4.0-10.0)
[2022-12-30 06:56] LABS: Folate Level 6.1 ng/mL (4.8-37.3)
[2022-12-30 07:06] LABS: Estmated Average Glucose 100; Hemoglobin A1C 5.1 % (4.0-6.0)
[2022-12-30] MEDS: budesonide 0.5 mg/2 mL Neb INHALATION ×2 (07:15→19:35)
--- NOTE | 2022-12-30 07:40 | MR_ITS ---
WS: [id number] MRI HEAD WITHOUT CONTRAST TECHNIQUE: Sagittal T1, T2 axial, T2 axial FLAIR, axial and coronal T1 images, axial susceptibility w eighted imaging, axial diffusion weighted images, and coronal T2 images were obtained. CLINICAL INFORMATION: Persistent headache COMPARISON: None. FINDINGS: No evidence restricted diffusion to suggest acute ischemia. Ventricular system and basal cisterns are patent. Mild small vessel changes. Mild parenchymal volume loss. Normal posterior fossa. Normal vasc ular flow voids at the skull base. No extra-axial fluid collections. No evidence of mass or mass effe ct. Mild mucosal thickening in the ethmoid air cells. Mild mucosal thickening RIGHT maxillary sinus. Mastoid air cells well aerated. Normal posterior nasop harynx. No hemosiderin on susceptibly weighted images. Normal optic chiasm and pituitary infundibulum . MR/MR head wo con* [id number] IMPRESSION: 1. No evidence restricted diffusion to suggest acute ischemia. 2. Mild small vessel changes with mild parenchymal volume loss. 3. No hemosiderin on susceptibly weighted images. 4. Mild mucosal thickening in the ethmoid air cells and RIGHT maxillary sinus. 5. No hemosiderin on susceptibly weighted images.
--- NOTE | 2022-12-30 07:40 | MR_ITS ---
WS: [id number] MR VENOGRAPHY WITHOUT GADOLINIUM ENHANCEMENT. INDICATION: Headache severe fatigue TECHNIQUE: MR venogram without gadolinium enhancement with 2-D [id number]-[id number] and 3-D phase contrast technique. MIP images. FINDINGS: Distal jugular veins are patent. Normal sigmoid sinus and transverse sinuses. Normal sagitt al sinus. Normal straight sinus and internal cerebral veins. No evidence of dural sinus thrombosis. MR/[place] [id number] IMPRESSION: No evidence of dural sinus thrombosis
[2022-12-30] MEDS: famotidine 20 mg Tablet PO ×2 (09:33→17:44)
[2022-12-30] MEDS: aspirin 81 mg EC Tablet PO (09:33)
[2022-12-30] MEDS: cefTRIAXone 1,000 MG in sodium chloride 0.9% (plus) 50 ML 100 MG IV (09:33)
[2022-12-30] MEDS: amlodipine 5 mg Tablet PO (09:34)
[2022-12-30] MEDS: citalopram 20 mg Tablet PO (09:34)
[2022-12-30] MEDS: fluticasone nasal spray 16gm Btl 2 SPRAY NASAL (09:36)
[2022-12-30] MEDS: metoprolol tartrate 25 mg Tablet 12.5 MG PO ×2 (09:53→20:59)
[2022-12-30] MEDS: levothyroxine 100 mcg SDV IVP (10:14)
[2022-12-30] MEDS: levoFLOXacin 750 mg Tablet PO (11:34)
--- NOTE | 2022-12-30 15:31 | P.PN_ITS ---
Subjective Subjective: No acute events overnight. Today morning patient seen having breakfast. States feeling a lot better. Denies any more headaches. Continues to remain on 2 L oxygen supplementation. Denies any nausea, vomiting, headache. Has remained hemodynamically stable and afebrile. Blood work appreciated for stable CBC with results leukocytosis, ABG done yesterday showing resolution of hypercapnia and metabolic acidosis, stable BMP, TSH elevated but normalization of T4 Vitals/I&O/Wt Last Vital Signs Temp 99.1 F 12/30/22 11:06 Pulse 55 L 12/30/22 11:06 Resp 18 12/30/22 11:06 BP 145/80 12/30/22 11:06 Pulse Ox 93 12/30/22 11:06 O2 Del Method Nasal Cannula 12/30/22 11:06 O2 Flow Rate 2 12/30/22 07:17 12/30/22 12/30/22 12/30/22 06:59 14:59 22:59 Intake Total 250 / 895 290 / 290 Balance 250 / 895 290 / 290 Physical Exam Narrative: General: No acute distress, AO x3, NC oxygen supplementation, lethargic but able to have complete conversations. HEENT: PERRLA, pupils bilaterally equal and reactive Chest: Normal vesicular breath sounds all over lung menjivar without coarse crackles but with occasional rhonchi CVS: S1-S2 regular, no murmurs, no tachycardia, no gallops, no rubs Abdomen: Soft, nontender, no organomegaly, bowel sounds present, morbidly obese Neuro: No focal deficits, no facial deformity, AO x3, power 5/5 in all limbs Data 12/30/22 05:10 12/30/22 05:10 Micro: Microbiology 12/28/22 22:30 Urine Culture - Final Urine,Clean Catch 12/29/22 12:29 MRSA Culture - Final Nose 12/28/22 11:50 Blood Culture - Preliminary Blood NEGATIVE TO DATE 12/28/22 11:50 Blood Culture - Preliminary Blood NEGATIVE TO DATE A&P Assessment and plan (1) Daytime sleepiness: (2) Severe hypothyroidism: (3) Hypoxia: (4) Right lower lobe pneumonia: (5) Metabolic encephalopathy: (6) Headache: (7) Dehydration: (8) TEAGAN (acute kidney injury): (9) Hypothyroid: (10) Acidosis, lactic: (11) Altered mental status: Qualifiers: Altered mental status type: somnolence Qualified Code(s): R40.0 - Somnolence Plan Hospital course: 57-year-old female who was admitted who was recently moved from outside setting with history of hypothyroidism, Graves' disease presented with altered mental status and somnolence with history of daytime somnolence for last 1 years admitted for management of metabolic encephalopathy, lactic acid 7 , TEAGAN, creatinine 1.7. Altered mental status: Resolved. Acute metabolic encephalopathy: Most likely in setting of hypercapnia, acute kidney injury, metabolic and respiratory acidosis on admission secondary dehydration, hypoxia in setting of aspiration pneumonia, myxedema without coma in setting of severe hypothyroidism. Acute kidney injury along with metabolic acidosis and hypercapnia have resolved with improvement in mentation with IV hydration. Excessive daytime sleepiness: Could be multifactorial. Most likely in setting of severe hypothyroidism along with hypercapnia on admission secondary to noncompliance to oxygen. Could be secondary to severe hypothyroidism because of noncompliance to medications. Noncompliance to oxygen as it seems patient needs to be on 2 L of oxygen supplementation which she is not using currently. Found to be hypercapnic on admission. Cannot rule out undiagnosed sleep apnea. Narcolepsy could not be ruled out. CSF study showing mildly elevated monocytes with protein of 54 and a normal glucose. CSF cultures are negative. Stop antibiotics for meningitis and switch to oral antibiotics for community-acquired pneumonia. Severe hypothyroidism: Myxedema without coma. Repeat thyroid panel shows persistently elevated TSH but normalization of T4. Continue with IV levothyroxine. Recheck TSH with free T3 in AM. Cortisol level normal. Thyroid ultrasound results appreciated to be normal. History of Graves' disease. Headache: Could be in setting of uncontrolled hypertension. Blood pressure [place] admission more than 155 systolics. MRI and MRV negative for any acute abnormality. Tramadol as needed for pain. Hypertension: Goal blood pressure less than 140/90 mmHg. Continue with amlodipine 5 mg daily, metoprolol 12.5 mg twice daily. Will uptitrate antihypertensives as per blood pressure goals. Hypoxia: Most likely in setting of possible aspiration when patient was altered. MRSA swab negative. Sputum culture not collected. Stop IV ceftriaxone and vancomycin. Switch to oral Levaquin 750 mg for 3 more days to finish the course of antibiotics. Echocardiogram results appreciated. Plan for home O2 evaluation prior to discharge. Severe metabolic acidosis: Resolved Related to dehydration Full code. Regular diet. Famotidine for PUD prophylaxis Heparin for DVT prophylaxis. Discharge plan: Plan to discharge in next 24 hours if patient remains hemodynamically stable and afebrile on adjusted dose of levothyroxine and new antihypertensives with follow-up as an outpatient with primary care provider. Care discussed in detail with patient, patient's daughter at bedside. All the questions were answered. Attestations Medical Necessity Statement*: Requires further hospitalization for further evaluation and management of excessive daytime sleepiness secondary to severe hypothyroidism, myxedema without coma, uncontrolled hypertension while antihypertensives and levothyroxine dose was adjusted. Diagnoses Daytime sleepiness R40.0 Severe hypothyroidism E03.9 Hypoxia R09.02 Right lower lobe pneumonia J18.9 Metabolic encephalopathy G93.41 Headache R51.9 Dehydration E86.0 TEAGAN (acute kidney injury) N17.9 Hypothyroid E03.9 Acidosis, lactic E87.20 Altered mental status R40.0 Altered mental status type: somnolence
[2022-12-30] MEDS: ipratropium-albuterol 3 mL Neb INHALATION (19:35)
--- NOTE | 2022-12-30 22:21 | PC.NURSE ---
This nurse completed med rec with mom and pt at bedside.
[2022-12-31] VITALS (7 sets, daily range): BP systolic 139–168; BP diastolic 78–88; PULSE 57–86; RESP 14–18; TEMP 36.4–36.8; O2SAT 86–98
[2022-12-31] MEDS: TRAMadol 50 mg Tablet PO ×2 (04:12→10:22)
[2022-12-31] MEDS: heparin 5,000 unit/mL INJ 1 mL 5000 UNIT SUBCUT (06:17)
[2022-12-31] MEDS: levoFLOXacin 750 mg Tablet PO (06:17)
[2022-12-31] MEDS: famotidine 20 mg Tablet PO (08:11)
[2022-12-31] MEDS: aspirin 81 mg EC Tablet PO (08:11)
[2022-12-31] MEDS: metoprolol tartrate 25 mg Tablet 12.5 MG PO (08:11)
[2022-12-31] MEDS: amlodipine 5 mg Tablet PO (08:11)
[2022-12-31] MEDS: citalopram 20 mg Tablet PO (08:11)
[2022-12-31] MEDS: levothyroxine 100 mcg SDV IVP (08:12)
[2022-12-31] MEDS: ondansetron 2 mg/ML SDV 2 mL 4 MG IVP (08:12)
[2022-12-31] MEDS: budesonide 0.5 mg/2 mL Neb INHALATION (08:48)
[2022-12-31] MEDS: ipratropium-albuterol 3 mL Neb INHALATION (08:48)
--- NOTE | 2022-12-31 10:06 | P.DS_ITS ---
Discharge Providers Date of Admission: 12/26/22 19:43 Date of Discharge: December 31, 2022 Attending Provider at Admission: Facundo Rene MD Attending Provider at Discharge: Olegario Horton MD Primary Care Provider: Mayito Shankar MD Diagnoses at Discharge Discharge Diagnosis (1) Daytime sleepiness: Status: Acute (2) Severe hypothyroidism: Status: Acute (3) Hypoxia: Status: Acute (4) Right lower lobe pneumonia: Status: Acute (5) Metabolic encephalopathy: Status: Acute (6) Headache: Status: Acute (7) Dehydration: Status: Acute (8) TEAGAN (acute kidney injury): Status: Acute (9) Hypothyroid: Status: Acute (10) Acidosis, lactic: Status: Acute (11) Altered mental status: Status: Acute Qualifiers: Altered mental status type: somnolence Qualified Code(s): R40.0 - Somnolence Reason for Visit Reason for Visit: ams Brief History: History as per HPI: Arcelia Harris is a 57 year old female Who presented to the hospital with chief complaint of confusion.? Patient stating that she has been experiencing headache for the last 2 to 3 days she has not noticed any fever, nausea, vomiting, chest pain or shortness of breath, no recent signs of UTI, no recent abdominal pain, she has been experiencing diarrhea for last 2 weeks as well, she thinks she is dehydrated today when she helped her grandson to go to school she went back to take a nap and she did not wake up until 4:00 when the family arrived it was hard to arouse her and that is why EMS was called in the ER she has been diagnosed with severe dehydration with high lactic acid CSF panel requested she does not have any typical signs of meningitis high lactic acid could be related to dehydration versus breakthrough seizure however she is not endorsing tongue biting, urinary or fecal incontinence or history of seizure, TEAGAN noted as well clinically patient is dehydrated She is awake and alert GCS 15 NIH 0 Patient is stating that she moved from [place] and she has not been using his levothyroxine very well and she uses 2 L of oxygen only at bedtime Abnormal TSH noted Hospital Course Hospital Course Patient was admitted to the hospital further evaluation and management of metabolic encephalopathy leading to altered mental status, lactic acidosis on admission along with hypoxia. On admission she was also found to be dehydrated and acute kidney injury. Blood work is also concerning for respiratory metabolic acidosis with mild hypercapnia on ABG. She is started on IV fluids, broad-spectrum antibiotics. There are some concerns for meningitis on admission and CSF prior to antibiotics. CSF studies were concerning for elevated monocytes and mildly elevated protein up to 50. On admission she was also found to have severe hypothyroidism. On review of medication it seems patient has not taken her levothyroxine for over couple of months and has not been using her home oxygen. Patient continued to improve slowly with IV fluids and adjusted medication of levothyroxine. During hospitalization her blood culture and CSF cultures remain negative. They were low concerns for meningitis hence antibiotics were withheld and she was monitored off antibiotics for around 48 hours during which time she remained hemodynamically stable and afebrile. Patient was complaining of mild f rontal persistent headache for which MRI brain and MRV was done which ruled out cavernous thrombosis or any acute abnormality. Overall patient responded well, her metabolic and respiratory acidosis, h ypercapnia, TEAGAN and mentation resolved. It is believed patient's symptoms are most likely in setting of myxedema without coma from severe hypothyroidism and headache secondary to elevated blood press ures. Her antihypertensives were adjusted. Patient's care was discussed in detail with outpatient endocrinology who advised patient to be discharged on 150 mcg of levothyroxine with follow-up TSH, free T3 and free T4 in 6 weeks. She is to follow-up with a primary care provider onsite appointment with endocrinology in 6 weeks. Patient is also to take amlodipine 10 mg oral daily and losartan 25 mg oral daily for high blood pressures. She is to continue taking Levaquin for 2 more days to finish a course of antibiotics for community- acquired pneumonia. Physical Exam Narrative: General: No acute distress, AO x3, NC oxygen supplementation, HEENT: PERRLA, pupils bilaterally equal and reactive Chest: Normal vesicular breath sounds all over lung menjivar without coarse crackles but with occasional rhonchi CVS: S1-S2 regular, no murmurs, bradycardia, no gallops, no rubs Abdomen: Soft, nontender, no organomegaly, bowel sounds present, morbidly obese Neuro: No focal deficits, no facial deformity, AO x3, power 5/5 in all limbs Discharge Data Studies Completed and Pending Completed Studies During Hospitalization Category Date Time Status CT head wo con* [id number] Stat Cat Scan 12/26/22 16:52 Completed XR chest 1V portable [id number] Routine Exams 12/27/22 16:48 Completed XR chest 1V portable [id number] Stat Exams 12/26/22 16:52 Completed MR head wo con* [id number] Routine MRI 12/30/22 07:40 [place] [id number] Routine MRI 12/30/22 07:40 Completed CV. echo complete* [id number] Routine Ultrasound 12/28/22 08:14 [place] thyroid [id number] Routine Ultrasound 12/29/22 14:04 Completed Pending at discharge Category Date Time Status Blood Culture Stat Lab 12/28/22 11:50 Results Sputum Culture and Gram Stain Routine Lab 12/28/22 10:27 Uncollected T3 Free AM LABS Lab 12/31/22 10:00 Ordered Thyroid Peroxidase Antobodies Routine Lab 12/29/22 14:04 Received Thyroid Profile Q48H Lab 12/31/22 10:00 Ordered Thyroid Profile Q48H Lab 01/02/23 10:00 Ordered Thyroid Stimulating Immunoglob Routine Lab 12/29/22 14:04 Received VDRL on CSF Stat Lab 12/26/22 19:20 Received Radiology Impressions Head CT 12/26/22 16:52 IMPRESSION: 1. No acute abnormality of the brain. 2. Old lacunar infarct in the right basal ganglia. 3. Mild mucoperiosteal thickening in the visualized right maxillary sinus. 4. Incidental/nonacute findings are listed in the report. Chest X-Ray 12/27/22 16:48 IMPRESSION: 1. Right lower lobe pneumonia. 2. Cardiomegaly and mild pulmonary vascular congestion. Thyroid Ultrasound 12/29/22 14:04 IMPRESSION: Unremarkable thyroid. Head MRI 12/30/22 07:40 IMPRESSION: 1. No evidence restricted diffusion to suggest acute ischemia. 2. Mild small vessel changes with mild parenchymal volume loss. 3. No hemosiderin on susceptibly weighted images. 4. Mild mucosal thickening in the ethmoid air cells and RIGHT maxillary sinus. 5. No hemosiderin on susceptibly weighted images. Head/Brain Mag Res Venography 12/30/22 07:40 IMPRESSION: No evidence of dural sinus thrombosis Echocardiogram: CONCLUSIONS ?LV systolic function is normal with EF of 55 to 60% ?Grade 1 diastolic dysfunction ?Dilated left atrium ?Mild mitral regurgitation ?Mild tricuspid regurgitation ?No comparison studies are available ?Lester Caruso MD ?(Electronically Signed) ?Final Date:? ? ? 28 December 2022 ? 17:39 Laboratory Results WBC 9.8 10^3/uL (4.0-10.0) 12/30/22 05:10 RBC 3.69 10^6/uL (4.1-5.3) L 12/30/22 05:10 Hgb 12.1 g/dL (11.5-15.3) 12/30/22 05:10 Hct 36.1 % (37.0-47.0) L 12/30/22 05:10 MCV 97.8 fl (81-99) 12/30/22 05:10 MCH 32.8 pg (28.0-34.0) 12/30/22 05:10 MCHC 33.5 g/dL (30.0-36.0) 12/30/22 05:10 RDW 15.2 % (12.1-15.1) H 12/30/22 05:10 Plt Count 214 10^3/cmm (130-400) 12/30/22 05:10 MPV 9.6 fL (7.4-10.4) 12/30/22 05:10 Neut % (Auto) 57.3 % 12/30/22 05:10 Lymph % (Auto) 33.5 % 12/30/22 05:10 [place] % (Auto) 6.3 % 12/30/22 05:10 Eos % (Auto) 1.1 % 12/30/22 05:10 Baso % (Auto) 0.7 % 12/30/22 05:10 Neut # (Auto) 5.59 10^3/uL (1.8-7.7) 12/30/22 05:10 Lymph # (Auto) 3.3 10^3/uL (0.8-4.8) 12/30/22 05:10 [place] # (Auto) 0.6 10^3/uL (0.2-0.9) 12/30/22 05:10 Eos # (Auto) 0.1 10^3/uL (0.0-0.8) 12/30/22 05:10 Baso # (Auto) 0.1 10^3/uL (0.0-0.1) 12/30/22 05:10 Nucleated RBC % (auto) 0 % 12/30/22 05:10 Total Counted 100 (0-100) 12/28/22 04:13 Atypical Lymphs % Not Reportable 12/28/22 04:13 Absolute Neutrophils 9.2 10^3/cmm (1.4-6.5) H 12/28/22 04:13 Segmented Neutrophils 77 % 12/28/22 04:13 Abs Segm Neuts (Man) 9.2 10/cmm (1.6-7.1) H 12/28/22 04:13 Band Neutrophils 0.0 % 12/28/22 04:13 Abs Band Neuts (Man) 0.0 10^3/cmm (0.0-1.2) 12/28/22 04:13 Absolute Lymphocytes 1.8 10^3/cmm (1.2-3.4) 12/26/22 17:38 Lymphocytes (Manual) 16 % 12/28/22 04:13 Monocytes (Manual) 1.0 % 12/28/22 04:13 Absolute Monocytes 0.1 10^3/cmm (0.1-0.6) 12/28/22 04:13 Eosinophils (Manual) 0 % 12/28/22 04:13 Absolute Eosinophils 0.0 10^3/cmm (0.0-0.7) 12/28/22 04:13 Basophils (Manual) 0.0 % 12/28/22 04:13 Absolute Basophils 0.0 10^3/cmm (0.0-0.2) 12/28/22 04:13 Metamyelocytes 3.0 % 12/26/22 17:38 Myelocytes 4.0 % 12/28/22 04:13 Promyelocytes 2.0 % 12/28/22 04:13 Nucleated RBCs 0.0 /100WBC (0-1) 12/26/22 17:38 Nucleated RBCs # 0.0 /100WBC 12/30/22 05:10 Platelet Estimate Normal (Normal) 12/28/22 04:13 Macrocytosis 1+ H 12/26/22 17:38 PT 12.90 SECONDS (12.1-14.9) 12/26/22 17:38 INR 0.94 (0.8-1.2) 12/26/22 17:38 D-Dimer 0.43 ug/mIFEU (0-0.59) 12/26/22 20:00 Specimen Type Arterial 12/29/22 11:29 Sample Site Radial, right 12/29/22 11:29 ABG pH 7.45 (7.35-7.45) 12/29/22 11:29 ABG pCO2 41.4 mmHg (35-45) 12/29/22 11:29 ABG pO2 74.8 mmHg (80.0-100.0) L 12/29/22 11:29 ABG HCO3 28.6 mmol/L (22-26) H 12/29/22 11:29 ABG O2 Saturation 96.3 12/29/22 11:29 ABG Base Excess 4.1 mmol/L (-2.0-2.0) H 12/29/22 11:29 Manuel Test Pos 12/29/22 11:29 A-a O2 Gradient 9.5 mmHg (5-10) 12/29/22 11:29 Hematocrit 36.5 % (37-47) L 12/29/22 11:29 Hgb O2 Saturation 94.8 % (95-100) L 12/29/22 11:29 Carboxyhemoglobin 1.0 %THgb (0.4-20.1) 12/29/22 11:29 Methemoglobin 0.6 % (0.4-1.5) 12/29/22 11:29 Total Hemoglobin 11.9 g/dL (12-16) L 12/29/22 11:29 Sodium 138.0 mmol/L (131-143) 12/29/22 11:29 Potassium 3.1 mmol/L (3.5-5.0) L 12/29/22 11:29 Glucose 164.0 mg/dL (70-115) H 12/29/22 11:29 Ionized Calcium 1.1 mmol/L (1.1-1.4) 12/29/22 11:29 O2 Delivery Device Nc 12/29/22 11:29 O2 Liters/Min 2.0 % 12/29/22 11:29 FiO2 28.0 % 12/29/22 11:29 Wood Model Maker ID Seng 12/29/22 11:29 Crit Value Read Back Cak 12/26/22 17:07 Blood Gas Notified Time 1722 12/26/22 17:07 Sodium 136 mmol/L (136-145) 12/30/22 05:10 Potassium 4.1 mmol/L (3.5-5.1) 12/30/22 05:10 Chloride 101 mmol/L (98-107) 12/30/22 05:10 Carbon Dioxide 28 mmol/L (22-29) 12/30/22 05:10 Anion Gap 11.1 (5-19) 12/30/22 05:10 BUN 4 mg/dL (6-20) L 12/30/22 05:10 Creatinine 0.4 mg/dL (0.5-0.9) L 12/30/22 05:10 GFR Calculation 165.7 mL/min (90-130) H 12/30/22 05:10 Glucose 91 mg/dL (65-115) 12/30/22 05:10 Estimat Average Glucose 100 12/30/22 05:10 Hemoglobin A1c 5.1 % (4.0-6.0) 12/30/22 05:10 Calculated Osmolality 278 mOsm/kg (285-295) L 12/30/22 05:10 Lactic Acid 7.3 mmol/L (0.5-2.2) H* 12/26/22 17:38 Lactic Acid (Sepsis) 3.2 mmol/L (0.5-2.2) H 12/26/22 20:00 Lactate 1.0 mmol/L (0.5-2.2) 12/29/22 02:48 Calcium 8.7 mg/dL (8.5-10.5) 12/30/22 05:10 Phosphorus 3.7 mg/dL (2.5-4.5) 12/27/22 02:34 Magnesium 1.3 mg/dL (1.7-2.3) L 12/27/22 02:34 Iron 18 ug/dL (37-145) L 12/29/22 02:48 TIBC 163 mcg/dl 12/29/22 02:48 % Saturation 11.0 % (20-50) L 12/29/22 02:48 Unsat Iron Binding 145 ug/dL (112-347) 12/29/22 02:48 Total Bilirubin 0.4 mg/dL (0.15-1.2) 12/30/22 05:10 AST 14 U/L (0-32) 12/30/22 05:10 ALT 8 U/L (0-33) 12/30/22 05:10 Alkaline Phosphatase 87 U/L (35-105) 12/30/22 05:10 Ammonia 44 umol/L (11-51) 12/26/22 18:12 Troponin T Baseline 13 ng/L (0-10) H 12/26/22 17:38 Troponin T 120 Minute 11.63 ng/L (0-10) H 12/26/22 20:00 Delta Troponin T -1.37 ABS# (0-10) L 12/26/22 20:00 Troponin T Hi Sens 6Hr 12.59 ng/L (0-10) H 12/26/22 23:23 Troponin T Hi Sens 6Hr Delta -0.41 ng/L (0-12) L 12/26/22 23:23 C-Reactive Protein 171.6 mg/L (0.0-4.9) H 12/27/22 02:34 NT-Pro-B Natriuret Pep 3718 pg/mL (0-125) H 12/26/22 17:38 Total Protein 6.0 g/dL (6.6-8.7) L 12/30/22 05:10 Albumin 3.2 g/dL (3.5-5.2) L 12/30/22 05:10 Globulin 2.8 g/dL (1.3-4.6) 12/30/22 05:10 Triglycerides 110 mg/dL (0-150) 12/30/22 05:10 Cholesterol 83 mg/dL (0-200) 12/30/22 05:10 LDL Cholesterol, Calc 30 mg/dL (50-129) L 12/30/22 05:10 Total VLDL Cholesterol 22 mg/dL (0-30) 12/30/22 05:10 HDL Cholesterol 31 mg/dL (60-100) L 12/30/22 05:10 Cholesterol/HDL Ratio 2.68 mg/dL (0.0-4.40) 12/30/22 05:10 Vitamin B12 929 pg/mL (232-1245) 12/26/22 17:38 Folate 6.1 ng/mL (4.8-37.3) 12/30/22 05:10 Procalcitonin 0.86 ng/mL (0-0.5) H 12/29/22 02:48 TSH 8.92 uIU/mL (0.27-4.20) H 12/29/22 02:48 Free T4 0.87 ng/dL (0.82-1.77) 12/29/22 02:48 Prolactin 11.81 ng/mL (4.8-23.3) 12/26/22 20:00 Random Cortisol 15.44 ug/dL (2.47-19.5) 12/29/22 02:48 Urine Color Yellow (Yellow) 12/26/22 17:25 Urine Appearance Sl cloudy (CLEAR) A 12/26/22 17:25 Urine pH 5 (5-7) 12/26/22 17:25 Ur Specific [place] 1.025 (1.005-1.030) 12/26/22 17:25 Urine Protein 1+ (Negative) H 12/26/22 17:25 Urine Glucose (UA) Norm (Normal) 12/26/22 17:25 Urine Ketones 1+ (Negative) H 12/26/22 17:25 Urine Blood Neg (Negative) 12/26/22 17:25 Urine Nitrate Negative (Negative) 12/26/22 17:25 Urine Bilirubin 1+ (Negative) H 12/26/22 17:25 Urine Urobilinogen Norm mg/dL (Negative) 12/26/22 17:25 Ur Leukocyte Esterase Negative (Negative) 12/26/22 17:25 Urine RBC 0-4 /hpf (0-2) H 12/26/22 17:25 Urine WBC 0-4 /hpf (0-5) H 12/26/22 17:25 Ur Squamous Epith Cells 0-4 /hpf (0-5) H 12/26/22 17:25 Amorphous Sediment 3+ /hpf 12/26/22 17:25 Urine Bacteria Trace /hpf (NONE) 12/26/22 17:25 Urine Mucus 1+ /hpf 12/26/22 17:25 CSF Appearance Clear (CLEAR) 12/26/22 19:20 CSF Color Colorless (COLORLESS) 12/26/22 19:20 CSF WBC 3 /uL (0-5) 12/26/22 19:20 CSF RBC 0 10^3/uL (0-0) 12/26/22 19:20 CSF Mononuclear # Auto 0.003 10^3/uL (50-90) L 12/26/22 19:20 CSF Mononuclear WBCs % 100 % (50-90) H 12/26/22 19:20 CSF Polynuclear WBCs # 0.000 10^3/uL (0-10) 12/26/22 19:20 CSF Polynuclear WBCs % 0 % (0-10) 12/26/22 19:20 CSF Glucose 70 mg/dL (40-70) 12/26/22 19:20 CSF Total Protein 54 mg/dL (15-45) H 12/26/22 19:20 Ethyl Alcohol < 10 mg/dL (0-10) 12/26/22 17:38 Vitals Last Vital Signs Temp 98.1 F 12/31/22 07:51 Pulse 60 12/31/22 09:08 Resp 18 12/31/22 08:49 BP 168/88 12/31/22 07:51 Pulse Ox 95 12/31/22 08:49 O2 Del Method Nasal Cannula 12/31/22 08:49 O2 Flow Rate 2 12/31/22 08:49 Discharge Plan Discharge Patient Disposition: Home Condition: Stable Prescriptions: New amlodipine 10 mg tablet 10 mg PO DAILY Qty: 30 0RF levothyroxine 150 mcg capsule 150 mcg PO DAILY Qty: 30 0RF losartan 25 mg tablet 25 mg PO DAILY Qty: 30 0RF levofloxacin 750 mg Tablet 750 mg PO DAILY@0600 2 Days Qty: 2 0RF Continued acetaminophen [Tylenol Extra Strength] 500 mg tablet 1,500 mg PO Q6H PRN (Reason: Pain) atorvastatin 80 mg tablet 80 mg PO BEDTIME ondansetron 8 mg tablet,disintegrating 8 mg PO Q8H PRN (Reason: nausea and vomiting) 5 Days Qty: 15 0RF albuterol sulfate 90 mcg/actuation Hfa Aerosol Inhaler 2 puff INHALATION QID PRN (Reason: Shortness Of Breath) amitriptyline 25 mg tablet 25 mg PO BEDTIME Discontinued metoprolol tartrate 50 mg tablet 25 mg PO DAILY ibuprofen 200 mg Tablet 800 mg PO Q6H PRN (Reason: Pain) levothyroxine 100 mcg capsule 100 mcg PO DAILY 30 Days Qty: 30 3RF Discharge Orders: Discharge Order (Routine); Ordered 12/31/22 Ordered By: Olegario Horton Other Ambulatory Orders: T3 Free (Routine) Timeframe: 6 Weeks Facility: [facility] - Location: Lab - Main Lab Ordered By: Olegario Horton Free T4 Free Thyroxine (Routine) Timeframe: 6 Weeks Facility: [facility] - Location: Lab - Main Lab Ordered By: Olegario Horton Thyroid Stimulating Hormone (Routine) Timeframe: 6 Weeks Facility: [facility] - Location: Lab - Main Lab Ordered By: Olegario Horton Referrals: Mayito Shankar MD [Primary Care Provider] - 01/03/23 9:30 am Juliana Gaitan MD [Physician] - 01/02/23 7:45 am ( Graves disease) Discharge Diet: Cardiac Discharge Activity: Resume usual activity and Increase activity as tolerated Patient Instructions: Levothyroxine (By mouth), Amlodipine (By mouth), Losartan (By mouth) (Cozaar), Levofloxacin (By mouth), Hyponatremia (ED), Benzodiazepine Use Disorder (ED), Dementia (ED), Non-diabetic Hypoglycemia (ED), Hypoglycemia in a Person with Diabetes (ED), Concussion (ED), Alcohol Intoxication (ED), Subarachnoid Hemorrhage (GEN), Altered Mental Status (ED), Opioid Safety Activity Restrictions/Additional Instructions: Please follow-up with a primary care provider onsite appointment. You should follow-up with endocrinology within next 6 weeks. Appointment is being made for you. Please call the office to confirm the appointment. Before following up with endocrinology you should have blood work done which has been ordered. You should have TSH, free T3 and free T4 blood work done before going to endocrine office. Dose of levothyroxine has been increased to 150 mcg daily. Please check your blood pressure daily at home and maintain a blood pressure diary. You will be on losartan 25 mg daily and amlodipine 10 mg oral daily. Continue taking levofloxacin which is the antibiotic for 2 more days. Discharge Attestations Time Spent in Discharge Care*: greater than 30 min Specific Discharge Activities: educating patient, educating and/or supporting family/caregiver, discussing with pcp/other providers, discussing with disability case manager/social workers/dc planners, documenting/other paperwork and evaluating patient/reviewing data Status at Discharge: Cognitive status at discharge: cognitively intact , Behavioral status at discharge: cooperative , Functional status at discharge: independent ambulation , Overall status at discharge: patient is back to baseline Quality Metrics Clinical Quality Measures [ No reported AMI, CVA or VTE this stay] Coding Level of Care Code 55588 Total time (in minutes) for Discharge: 60 Diagnoses Daytime sleepiness R40.0 Severe hypothyroidism E03.9 Hypoxia R09.02 Right lower lobe pneumonia J18.9 Metabolic encephalopathy G93.41 Headache R51.9 Dehydration E86.0 TEAGAN (acute kidney injury) N17.9 Hypothyroid E03.9 Acidosis, lactic E87.20 Altered mental status R40.0 Altered mental status type: somnolence
[2022-12-31 10:49] LABS: Free T4 Free Thyroxine 1.27 ng/dL (0.82-1.77); Thyroid Stimulating Hormone 19.81 uIU/mL (0.27-4.20)
[2022-12-31 10:50] LABS: T3 Free 1.1 PG/ML (2.0-4.4)
--- NOTE | 2022-12-31 13:29 | PC.NURSE ---
Discharge pending delivery of oxygen and daughter to come pickler helper patient.
[2023-01-01 01:40] LABS: VDRL on CSF NON-REACTIVE
[2023-01-01 11:09] LABS: Thyroid Peroxidase Antobodies 129 IU/mL (<9)
[2023-01-02 14:09] LABS: Thyroglobulin AB >1000 IU/mL (< or = 1)
[2023-01-03 23:14] LABS: TSH Receptor Binding Antibody <1.00 IU/L (< OR = 2.00)
[2023-01-04 19:09] LABS: Thyroid Stimulating Immunoglob <89 % baseline (<140)
== END 2022-12-31 14:47 | disposition home or self-care (01) | DRG 70 ==
LOC: ER 19:56 → MEDSURG 21:34
PROVIDERS: Admitting Provider Internal Medicine; Emergency Provider Emergency Medicine; PCP Family Medicine Adult Medicine; Visit Provider Student in an Organized Health Care Education/Training Program
DX: G93.41 Metabolic encephalopathy (principal); J18.9 Pneumonia, unspecified organism; E87.4 Mixed disorder of acid-base balance; N17.9 Acute kidney failure, unspecified; M54.50 Low back pain, unspecified; I12.9 Hypertensive chronic kidney disease with stage 1 through stage 4 chronic kidney disease, or unspecified chronic kidney disease; F17.210 Nicotine dependence, cigarettes, uncomplicated; N18.2 Chronic kidney disease, stage 2 (mild); E05.00 Thyrotoxicosis with diffuse goiter without thyrotoxic crisis or storm; E03.9 Hypothyroidism, unspecified; G25.81 Restless legs syndrome; R06.89 Other abnormalities of breathing; Z91.148 Patient's other noncompliance with medication regimen for other reason; Z91.199 Patient's noncompliance with other medical treatment and regimen due to unspecified reason; R40.0 Somnolence; E86.0 Dehydration; R09.02 Hypoxemia; Z99.81 Dependence on supplemental oxygen; R51.9 Headache, unspecified
CPT/HCPCS: 36415; 36600; 62270; 70450; 70544; 70551; 71045; 76536; 80048; 80051; 80053; 80061; 80307; 80503; 81001; 82140; 82330; 82533; 82607; 82746; 82803; 82805; 82945; 83036; 83516; 83540; 83550; 83605; 83735; 83880; 84100; 84145; 84146; 84157; 84439; 84443; 84445; 84481; 84484; 85007; 85025; 85378; 85610; 86140; 86376; 86592; 86800; 87040; 87070; 87075; 87086; 87205; 87641; 89050; 93005; 93306; 94640; 94760; 94762; 96361; 96365; 96372; 96375; 96376; 99291; 99292; J0692; J0696; J1644; J1885; J1940; J1953; J2405; J3370; J3411; J3475; J3480; J3490; J7030; J7040; J7050; J7626

== ENCOUNTER 2023-01-24 13:58 | Outpatient (CLI) | payer MEDICAID, SELFPAY ==
[2023-01-24 15:29] LABS: Free T4 Free Thyroxine 1.93 ng/dL (0.82-1.77); Thyroid Stimulating Hormone 0.63 uIU/mL (0.27-4.20)
== END 2023-01-24 13:59 | disposition home or self-care (01) ==
PROVIDERS: PCP Family Medicine Adult Medicine; Visit Provider Internal Medicine
DX: E05.00 Thyrotoxicosis with diffuse goiter without thyrotoxic crisis or storm (principal)
CPT/HCPCS: 36415; 84439; 84443

== ENCOUNTER → 2023-02-12 12:08 | Outpatient (BNVA) | payer MEDICAID, SELFPAY | PROVIDERS: PCP Family Medicine Adult Medicine; Visit Provider Internal Medicine | DX: E03.9 Hypothyroidism, unspecified (principal); E05.00 Thyrotoxicosis with diffuse goiter without thyrotoxic crisis or storm; E06.3 Autoimmune thyroiditis; R00.2 Palpitations | CPT/HCPCS: 36415; 84439; 84443 ==

== ENCOUNTER 2023-02-13 18:31 | Emergency (ER) | payer MEDICAID, SELFPAY ==
[2023-02-13 19:27] VITALS: BMI 27.4
[2023-02-13 19:30] VITALS: BP 112/74; PULSE 82; RESP 17; TEMP 36.8; O2SAT 91
[2023-02-13 19:37] VITALS: BP 118/72; PULSE 74; RESP 16; O2SAT 93
--- NOTE | 2023-02-13 20:48 | ED_ITS ---
HPI - URI/Sore Throat General: Chief Complaint: Upper Respiratory Infection Stated Complaint: Sore Throat\Headache Time Seen by Provider: 02/13/23 20:47 History of Present Illness: 57-year-old female comes in today for concerns of sore throat, headache, and decreased oxygen. Patient reports her daughter noticed that her lips were blue when she came to visit. Patient does have a history of pneumonia within the last year and symptoms are very similar to it. Patient appears nontoxic. Patient appears in no pain. Patient has a history of hypertension, hypothyroidism, COPD. Review of Systems General: Reports: 10 or more systems reviewed and unremarkable except in HPI and below Const: Reports: fatigue ENMT: Reports: throat pain Resp: Reports: dyspnea PFSH ED PFSH: Medical History Acute respiratory failure with hypoxia and hypercapnia Allergic rhinitis due to allergen Chronic low back pain Chronic renal insufficiency, stage II (mild) Decreased glomerular filtration rate (GFR) HTN (hypertension) Hypothyroid Pancreatic duct calculus Pneumonia Restless leg syndrome Severe sepsis SIRS (systemic inflammatory response syndrome) Somnolence Surgical History Hx of cholecystectomy Family History Other Arthritis CHF (congestive heart failure) Cancer Hyperlipidemia Hypertension Social History Smoking and tobacco status: current every day smoker e-cigarettes E-Cigarette Details: vaporizer device Quit status (tobacco): has quit using tobacco Year quit tobacco: 2020 Second hand smoke exposure: Yes Alcohol intake: current Alcohol intake frequency: holidays/special occasions only Alcohol type: beer Substance/Drug Use: never Household members: family and children Current occupational status: unemployed Physical Exam Const: COMMON NORMALS: alert HENMT: COMMON NORMALS: normocephalic HEAD & SCALP: normocephalic MOUTH: Normal oral and palatal mucosa present THROAT: posterior oropharynx normal Neck/C-Spine: COMMON NORMALS: full ROM Resp: COMMON NORMALS: normal respiratory effort and clear to auscultation bilaterally AUSCULTATION: clear to auscultation bilaterally Cardio: COMMON NORMALS: regular rate and regular rhythm RATE: regular rate RHYTHM: regular rhythm GI: COMMON NORMALS: Soft to palpation and non-tender PALPATION: Yes Soft to palpation Back/Pelvis: COMMON NORMALS: thoracic and lumbar spine normal to inspection Extremity: COMMON NORMALS: no pedal edema Neuro: SENSORIUM/ORIENTATION: Yes alert Skin: COMMON NORMALS: turgor normal GENERAL SKIN EXAM: turgor normal Course Vital Signs: Vital signs: Vital Signs Temperature 98.3 F 02/13/23 19:30 Pulse Rate 75 02/13/23 21:34 Respiratory Rate 16 02/13/23 19:37 Blood Pressure 107/75 02/13/23 21:34 Pulse Oximetry 97 02/13/23 21:34 Oxygen Delivery Me thod Room Air 02/13/23 21:00 MDM - URI/Sore Throat Medical Decision Making Patient came in today due to sore throat, fatigue and low oxygen levels. On exam patient has normal vital signs. Oxygen was normal. Lungs were clear to auscultation. Skin was warm and dry. Patient does have a history of COPD. Differential diagnosis includes pneumonia, upper respiratory infection, viral syndrome, strep pharyngitis. Chest x-ray was unremarkable. Strep test was negative. Believe patient probably has an exacerbation of COPD we will cover with 1 dose of dexamethasone, 5 days of prednisone, 7 days of doxycycline. Patient was medicated and released to home with instructions to patient and daughter with statements of understanding. Lab Data Radiology Impressions Chest X-Ray 02/13/23 20:48 IMPRESSION: No acute findings. Laboratory Results Group A Strep Rapid Negative (Negative) 02/13/23 20:46 Discharge Plan Discharge Patient Disposition: Home Clinical Impression: COPD with exacerbation Condition: Stable Prescriptions: New doxycycline monohydrate 100 mg capsule 100 mg PO BID 7 Days Qty: 14 0RF prednisone 20 mg tablet 20 mg PO DAILY 5 Days Qty: 5 0RF No Action acetaminophen [Tylenol Extra Strength] 500 mg tablet 1,500 mg PO Q6H PRN (Reason: Pain) atorvastatin 80 mg tablet 80 mg PO BEDTIME amlodipine 10 mg tablet 10 mg PO DAILY Qty: 30 5RF losartan 25 mg tablet 25 mg PO DAILY Qty: 30 5RF ondansetron 8 mg tablet,disintegrating 8 mg PO Q8H PRN (Reason: nausea and vomiting) Qty: 30 1RF albuterol sulfate 90 mcg/actuation HFA aerosol inhaler 2 puff INHALATION QID PRN (Reason: Shortness Of Breath) Qty: 8.5 3RF levothyroxine 137 mcg capsule 137 mcg PO DAILY Qty: 60 0RF amitriptyline 25 mg tablet 25 mg PO BEDTIME Discharge Orders: Discharge ED (Routine); Ordered 02/13/23 Ordered By: Jaden Siegel Referrals: Mayito Shankar MD [Primary Care Provider] - Discharge Diet: Usual diet Discharge Activity: Increase activity as tolerated Patient Instructions: COPD (Chronic Obstructive Pulmonary Disease) (ED) Activity Restrictions/Additional Instructions: Water andTake medication as directed. Try to stop vaping. Foods of antibiotics. Follow-up with primary care in 3 to 5 days for recheck. Return to ED for worsening symptoms. 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
--- NOTE | 2023-02-13 20:48 | XRR_ITS ---
PROCEDURE INFORMATION: Exam: XR Chest Exam date and time: 02/13/2023 8:53 PM Age: 57 years old Clinical indication: Cough; Additional info: Weakness, cough TECHNIQUE: Imaging protocol: Radiologic exam of the chest. Views: 1 view. COMPARISON: CR (CHEST, ) 12/27/2022 3:58 PM FINDINGS: Lungs: Unremarkable. No consolidation. Pleural spaces: Unremarkable. No pleural effusion. No pneumothorax. Heart/Mediastinum: Unremarkable. No cardiomegaly. Bones/joints: Unremarkable. XR/XR chest 1V portable [id number] IMPRESSION: No acute findings.
[2023-02-13 21:00] VITALS: BP 103/61; PULSE 77; O2SAT 96
[2023-02-13 21:16] LABS: Rapid Strep A Test Negative (Negative)
[2023-02-13] MEDS: dexamethasone 10 mg/mL INJ IM (21:28)
[2023-02-13] MEDS: doxycycline 100 mg Tablet PO (21:28)
[2023-02-13 21:34] VITALS: BP 107/75; PULSE 75; O2SAT 97
== END 2023-02-13 21:35 | disposition home or self-care (01) ==
PROVIDERS: Emergency Medicine; Emergency Provider Nurse Practitioner Family; PCP Family Medicine Adult Medicine
DX: J44.1 Chronic obstructive pulmonary disease with (acute) exacerbation (principal); F17.290 Nicotine dependence, other tobacco product, uncomplicated; I12.9 Hypertensive chronic kidney disease with stage 1 through stage 4 chronic kidney disease, or unspecified chronic kidney disease; N18.2 Chronic kidney disease, stage 2 (mild)
CPT/HCPCS: 71045; 87081; 87880; 96372; 99284; J1100